=== PATIENT | female | born 1945 | race Hispanic/Latino ===

== ENCOUNTER 2017-05-15 06:41 | Inpatient (IN) | payer MEDICARE, MEDICAID ==
[2017-05-15 06:42] VITALS: BMI 36.6
--- NOTE | 2017-05-15 07:08 | C.PDOC ---
History Of Present Illness 71 year old female brought to ED via ALS from [facility] for altered mental status which was discovered this morning prior to arrival. As per EMS, pt was last noted to be normal last night. As per nursing record, pt had elevated temperature of 104. Limited history obtained from patient at this time due to clinical condition. Time Seen by Provider: 05/15/17 06:56 Chief Complaint (Nursing): Altered Mental Status History Per: EMS History/Exam Limitations: None Onset/Duration Of Symptoms: Unknown Current Symptoms Are (Timing): Still Present Additional History Per: EMS Associated Symptoms: Disoriented Past Medical History Reviewed: Historical Data, Nursing Documentation, Vital Signs Vital Signs: Last Vital Signs Temp 104 F H 05/15/17 09:07 Pulse 94 H 05/15/17 09:07 Resp 24 05/15/17 09:07 BP 95/26 L 05/15/17 09:07 Pulse Ox 99 05/15/17 09:07 - Medical History PMH: Anemia, Anxiety, Arthritis, Asthma, Depression, Diabetes (IDDM), Diverticulitis (s/p Merrill procedure), Fractures, HTN, Hypercholesterolemia, Hyperlipidemia, TIA Denies: CHF, COPD, HIV, Hypothyroidism, Chronic Kidney Disease, Rheumatoid Arthritis Surgical History: Back Surgery, Cholecystectomy - [facility] BONE MARROW OPS NEC (08/21/14) COMMUNICATIVE/COGNITIVE INTEGRATION SKILLS TREATMENT (05/08/16) DEBRIDEMENT OF NAIL, NAIL BED OR NAIL FOLD (12/12/12) DRAINAGE OF LOWER BACK, OPEN APPROACH (06/28/16) EXCISE BONE FOR GFT NEC (08/21/14) EXCISION OF BACK SKIN, EXTERNAL APPROACH (06/28/16) EXCISION OF BACK SUBCU/FASCIA, OPEN APPROACH (06/28/16) EXERCISE TRMT MUSCULOSK LOW BACK/LE W ASSIST EQUIP (05/08/16) FUSION/REFUS OF 2-3 VERTEBRAE (08/21/14) GAIT TRAINING/AMBULAT TREATMENT USING ASSIST EQUIPMENT (05/08/16) GROOMING/PERSONAL HYGIENE TREATMENT USING ASSIST EQUIPMENT (05/08/16) INSERTION OF INFUSION DEV INTO SUP VENA CAVA, PERC APPROACH (06/28/16) LUMBAR & LUMBOSACRAL FUSION OF POSTERIOR COL/TECHNIQUE (08/21/14) OCCUPATIONAL THERAPY (10/31/14) OTHER LOCAL DESTRUC SKIN (12/12/12) PACKED CELL TRANSFUSION (08/21/14) PHYSICAL THERAPY NEC (10/31/14) REPOSITION LEFT RADIUS, EXTERNAL APPROACH (05/07/17) TRANSFUSE NONAUT RED BLOOD CELLS IN PERIPH VEIN, PERC (06/28/16) Family History: States: Unknown Family Hx - Social History Hx Alcohol Use: No Hx Substance Use: No Review Of Systems Review Of Systems: ROS cannot be obtained secondary to pt's inabilty to answer questions. Physical Exam - Physical Exam Appears: No Acute Distress, Agitated, Confused Skin: Warm, Diaphoretic Head: Atraumatic, Normacephalic Eye(s): bilateral: Abnormal Pupil (pupils dilated) Nose: No Epistaxis Oral Mucosa: Moist Lips: No Swelling Neck: Supple Cardiovascular: Rhythm Regular, No Edema, No Murmur Respiratory: No Decreased Breath Sounds, No Rales, No Rhonchi, No Stridor, No Wheezing Gastrointestinal/Abdominal: Soft, No Distention, No Guarding Extremity: No Pedal Edema, No Deformity Extremity: Bilateral: Atraumatic Pulses: Right Radial: Normal Neurological/Psych: No Oriented x3 (disoriented), Other (no focal deficits) ED Course And Treatment - Laboratory Results Result Diagrams: 05/15/17 07:13 05/15/17 08:29 O2 Sat by Pulse Oximetry: 93 Critical Care Time - Critical Care Note Total Time (in mins): 60 Documented critical care: time excludes all time spent performing seperately billable procedures. Medical Decision Making Medical Decision Making: Initial EKG showed vtach. Pt was placed on Amiodarone drip by overnight physician. Upon my evaluation, pt appears to be in sinus rhythm on the monitor. 8am disc w both director insurance and neurologist Dr Tinsley. 945am pt now resting quietly without agitation or tremor. pupils less dilated. serotonin syndrome high on differential- rx w benzo and cyproheptadine also covering for infection with broad spec abx Disposition - Disposition Disposition: HOSPITALIZED Disposition Time: 09:49 Condition: CRITICAL Forms: [facility] (Albanian) - Clinical Impression Clinical Impression: Hyperthermia, Altered mental status - Scribe Statement The provider has reviewed the documentation as recorded by the Scribe Lindsay Coley All medical record entries made by the Scribe were at my direction and personally dictated by me. I have reviewed the chart and agree that the record accurately reflects my personal performance of the history, physical exam, medical decision making, and the department course for this patient. I have also personally directed, reviewed, and agree with the discharge instructions and disposition.
[2017-05-15] MEDS ORDERED: Sodium Chloride 0.9% 1,000 ML IV ONE ×2 (07:12→07:13)
[2017-05-15 07:16] LABS: BASO # 0.1 K/uL (0.0-0.2); BASO % 0.5 % (0.0-2.0); EOS # 0.1 K/uL (0.0-0.7); EOS % 0.7 % (0.0-4.0); HEMOGLOBIN 13.6 g/dL (11.0-16.0); LYMPH # 4.5 K/uL (1.0-4.3); LYMPH % 28.4 % (20.0-40.0); MEAN CELL VOLUME 81.6 fL (81.0-99.0); MEAN CORPUSCULAR HEMOGLOBIN 26.7 pg (27.0-31.0); MEAN CORPUSCULAR HGB CONC 32.8 g/dL (33.0-37.0); MEAN PLATELET VOLUME 8.4 fL (7.2-11.7); MONO # 0.4 K/uL (0.0-0.8); MONO % 2.7 % (0.0-10.0); NEUT # 10.7 K/uL (1.8-7.0); NEUT % 67.7 % (50.0-75.0); NRBC % 0.2 % (0.0-2.0); RBC 5.07 Mil/uL (3.80-5.20); RED CELL DISTRIBUTION WIDTH 16.3 % (11.5-14.5); WHITE BLOOD COUNT 15.8 K/uL (4.8-10.8)
[2017-05-15 07:18] LABS: VENOUS BLOOD GAS BASE EXCESS -6.9 mmol/L (0.0-2.0); VENOUS BLOOD GAS PCO2 36 mmHg (40-60); VENOUS BLOOD GAS PO2 21 mm/Hg (30-55); VENOUS BLOOD PH 7.32 (7.32-7.43)
[2017-05-15 07:23] LABS: INR 1.1; PROTHROMBIN TIME 12.7 SECONDS (9.7-12.2)
[2017-05-15] MEDS ORDERED: Cyproheptadine 2 mg/5 ml Syrup (480mL) PO STA (07:34)
[2017-05-15 07:40] LABS: SQUAMOUS EPITHIAL 1 /hpf (0-5); URINE AMORPHOUS SEDIMENT RARE /ul (<OCC); URINE BILIRUBIN NEGATIVE (NEGATIVE); URINE BLOOD 1+ (NEGATIVE); URINE CLARITY Clear (Clear); URINE COLOR Yellow (YELLOW); URINE GLUCOSE (UA) NORMAL (Normal); URINE HYALINE CAST 0-2 /lpf (0-2); URINE LEUKOCYTE ESTERASE NEG Leu/uL (Negative); URINE NITRATE NEGATIVE (NEGATIVE); URINE PROTEIN 1+ mg/dL (NEGATIVE); URINE UROBILINOGEN NORMAL mg/dL (0.2-1.0)
[2017-05-15] MEDS ORDERED: Vancomycin 500 mg Inj IVPB STA (07:56)
[2017-05-15] MEDS ORDERED: Piperacill/Tazo 4.5gm in Dex 4.5 GM/100 ML BAG IVPB STA (07:57)
[2017-05-15] MEDS ORDERED: Vancomycin 1.5 GM in Sodium Chloride 0.9% 500 ML IVPB STA (08:16)
[2017-05-15 08:44] LABS: ALB/GLOB RATIO 1.1 (1.0-2.1); ALBUMIN 3.6 g/dL (3.5-5.0); CALCIUM 7.6 mg/dl (8.6-10.4)
--- NOTE | 2017-05-15 08:59 | CT ---
PROCEDURE: CT HEAD WITHOUT CONTRAST. HISTORY: ams COMPARISON: None available. TECHNIQUE: Axial computed tomography images were obtained through the head/brain without intravenous contrast. Radiation dose: Total exam DLP = 825.04 mGy-cm. This CT exam was performed using one or more of the following dose reduction techniques: Automated exposure control, adjustment of the mA and/or kV according to patient size, and/or use of iterative reconstruction technique. FINDINGS: HEMORRHAGE: No intracranial hemorrhage. BRAIN: No mass effect or edema. Moderate atrophy is noted. There are foci of hypodensity seen adjacent to mid and posterior aspect of the lateral ventricles of uncertain etiology. The differential consideration includes chronic microvascular ischemic disease. The possibility of subacute ischemic changes is not totally excluded. VENTRICLES: Unremarkable. No hydrocephalus. CALVARIUM: Unremarkable. PARANASAL SINUSES: Unremarkable as visualized. No significant inflammatory changes. MASTOID AIR CELLS: Unremarkable as visualized. No inflammatory changes. OTHER FINDINGS: None. IMPRESSION: Baseline CT of the head. Moderate atrophy. Periventricular hypodensities noted more prominent at the mid and posterior aspect of the lateral ventricles may represent chronic microvascular ischemic disease. Other etiology including subacute ischemia is not totally excluded. No evidence of acute intracranial hemorrhage mass effect or midline shift.
[2017-05-15 09:00] LABS: CK-MB 1.65 ng/mL (0.0-3.38); TROPONIN I 0.521 ng/mL (0.00-0.120)
[2017-05-15 09:16] LABS: ABG ALLEN TEST POS; ARTERIAL BLOOD GAS HCO3 16.3 mmol/L (21-28); ARTERIAL BLOOD GAS HEMOGLOBIN 10.9 g/dL (11.7-17.4); ARTERIAL BLOOD GAS O2 SAT 98.2 % (95-98); ARTERIAL BLOOD GAS PCO2 32 mm/Hg (35-45); ARTERIAL BLOOD GAS PH 7.27 (7.35-7.45); ARTERIAL BLOOD GAS PO2 174 mm/Hg (80-100); ARTERIAL BLOOD GAS TCO2 15.7 mmol/L (22-28)
--- NOTE | 2017-05-15 14:26 | CP.PCM.CON ---
History of Present Illness - History of Present Illness History of Present Illness: 71yo F. PMHx Anemia, Anxiety, Arthritis, Asthma, Depression, Diabetes (IDDM), Diverticulitis (s/p Merrill procedure), Fractures, HTN, Hypercholesterolemia, Hyperlipidemia, TIA. Patient was recently hospitalized for wrist fracture and then discharge to rehab. Presents with AMS, rigidity, tremors and hyperthermia. Suspected to have serotonin syndrome by ER. Review of Systems - Review of Systems Systems not reviewed;Unavailable: Altered Mental Status Past Patient History - Infectious Disease Hx of Infectious Diseases: None - Past Medical History & Family History Past Medical History?: Yes - Past Social History Smoking Status: Never Smoked - CARDIAC Hx Congestive Heart Failure: No Hx Hypercholesterolemia: Yes Hx Hypertension: Yes - PULMONARY Hx Asthma: Yes Hx Chronic Obstructive Pulmonary Disease (COPD): No - NEUROLOGICAL Hx Transient Ischemic Attacks (TIA): Yes - HEENT Other/Comment: GLASSES - NEARSIGHTEDNESS. - RENAL Hx Chronic Kidney Disease: No - ENDOCRINE/METABOLIC Hx Hypothyroidism: No - HEMATOLOGICAL/ONCOLOGICAL Hx Anemia: Yes Hx Human Immunodeficiency Virus (HIV): No - INTEGUMENTARY Hx Cellulitis: Yes (BLE) Other/Comment: Sacral decubiti, RIGHT HEEL (DTI) - MUSCULOSKELETAL/RHEUMATOLOGICAL Hx Arthritis: Yes Hx Fractures: Yes Hx Rheumatoid Arthritis: No - GASTROINTESTINAL Hx Diverticulitis: Yes (s/p Merrill procedure) - GENITOURINARY/GYNECOLOGICAL Hx Genitourinary Disorders: No Other/Comment: bladder fistula - PSYCHIATRIC Hx Anxiety: Yes Hx Depression: Yes Hx Substance Use: No - SURGICAL HISTORY Hx Cholecystectomy: Yes - ANESTHESIA Hx Anesthesia: Yes Hx Anesthesia Reactions: No Hx Malignant Hyperthermia: No Meds Allergies/Adverse Reactions: Allergies Allergy/AdvReac Type Severity Reaction Status Date / Time iodine Allergy RASH Verified 05/15/17 07:10 Sulfa (Sulfonamide Allergy RASH Verified 05/15/17 07:10 Antibiotics) - Medications Medications: Current Medications Amiodarone HCl 900 mg/ (Dextrose) 500 mls @ 16.66 mls/hr IV .Q24H LUIS ALBERTO; 0.5 MG/ MIN PRN Reason: Protocol Stop: 05/16/17 09:52 Physical Exam - Head Exam Head Exam: ATRAUMATIC, NORMAL INSPECTION, NORMOCEPHALIC - Eye Exam Eye Exam: EOMI - ENT Exam ENT Exam: Mucous Membranes Moist - Respiratory Exam Respiratory Exam: Clear to Auscultation Bilateral, NORMAL BREATHING PATTERN - Cardiovascular Exam Cardiovascular Exam: REGULAR RHYTHM - GI/Abdominal Exam GI & Abdominal Exam: Normal Bowel Sounds, Soft. absent: Tenderness - Neurological Exam Neurological exam: Alert Results - Vital Signs Recent Vital Signs: Last Vital Signs Temp 100.6 F H 05/15/17 11:30 Pulse 76 05/15/17 12:42 Resp 17 05/15/17 12:42 BP 95/41 L 05/15/17 12:42 Pulse Ox 97 05/15/17 12:42 - Labs Result Diagrams: 05/15/17 07:13 05/15/17 08:29 Labs: Laboratory Results - last 24 hr 05/15/17 05/15/17 05/15/17 07:13 07:13 07:13 WBC 15.8 H RBC 5.07 Hgb 13.6 Hct 41.3 MCV 81.6 MCH 26.7 L MCHC 32.8 L RDW 16.3 H Plt Count 335 MPV 8.4 Neut % (Auto) 67.7 Lymph % (Auto) 28.4 Elk % (Auto) 2.7 Eos % (Auto) 0.7 Baso % (Auto) 0.5 Neut # 10.7 H Lymph # 4.5 H Elk # 0.4 Eos # 0.1 Baso # 0.1 PT 12.7 H INR 1.1 APTT 25 Puncture Site pCO2 pO2 21 L HCO3 ABG pH ABG Total CO2 ABG O2 Saturation ABG Base Excess ABG Hemoglobin ABG Carboxyhemoglobin POC ABG HHb (Measured) ABG Methemoglobin Jose Test VBG pH 7.32 VBG pCO2 36 L VBG HCO3 17.7 VBG Total CO2 19.6 L VBG O2 Sat (Calc) 33.1 L VBG Base Excess -6.9 L VBG Potassium 6.0 H A-a O2 Difference Respiratory Index Hgb O2 Saturation Sodium 134.0 Chloride 102.0 Glucose 158 H Lactate 2.1 Liter Flow FiO2 Potassium Carbon Dioxide Anion Gap BUN Creatinine Est GFR ( Amer) Est GFR (Non-Af Amer) Random Glucose Calcium Total Bilirubin AST ALT Alkaline Phosphatase Total Creatine Kinase CK-MB (Mass) Troponin I NT-Pro-B Natriuret Pep Total Protein Albumin Globulin Albumin/Globulin Ratio Triglycerides Cholesterol LDL Cholesterol Direct HDL Cholesterol TSH 3rd Generation Venous Blood Potassium 6.0 H Urine Color Urine Clarity Urine pH Ur Specific [place] Urine Protein Urine Glucose (UA) Urine Ketones Urine Blood Urine Nitrate Urine Bilirubin Urine Urobilinogen Ur Leukocyte Esterase Urine WBC (Auto) Urine RBC (Auto) Ur Squamous Epith Cells Amorphous Sediment Hyaline Casts 05/15/17 05/15/17 05/15/17 07:29 08:29 09:13 WBC RBC Hgb Hct MCV MCH MCHC RDW Plt Count MPV Neut % (Auto) Lymph % (Auto) [place] % (Auto) Eos % (Auto) Baso % (Auto) Neut # Lymph # [place] # Eos # Baso # PT INR APTT Puncture Site Rra pCO2 32 L pO2 174 H HCO3 16.3 L ABG pH 7.27 L ABG Total CO2 15.7 L ABG O2 Saturation 98.2 H ABG Base Excess -11.1 L ABG Hemoglobin 10.9 L ABG Carboxyhemoglobin 0.9 POC ABG HHb (Measured) 1.8 ABG Methemoglobin 1.1 Jose Test Pos VBG pH VBG pCO2 VBG HCO3 VBG Total CO2 VBG O2 Sat (Calc) VBG Base Excess VBG Potassium A-a O2 Difference 499.0 Respiratory Index 2.9 Hgb O2 Saturation 96.3 Sodium 133 Chloride 101 Glucose Lactate Liter Flow 12.0 FiO2 100.0 Potassium 5.6 H Carbon Dioxide 17 L Anion Gap 19 BUN 29 H Creatinine 1.6 H Est GFR ( Amer) 38 Est GFR (Non-Af Amer) 32 Random Glucose 164 H Calcium 7.6 L Total Bilirubin 1.3 AST 49 H D ALT 29 Alkaline Phosphatase 67 Total Creatine Kinase 208 H CK-MB (Mass) 1.65 Troponin I 0.5210 H* NT-Pro-B Natriuret Pep 1080 H Total Protein 7.1 Albumin 3.6 Globulin 3.5 Albumin/Globulin Ratio 1.1 Triglycerides 143 Cholesterol 123 LDL Cholesterol Direct 61 HDL Cholesterol 26 L TSH 3rd Generation 1.08 Venous Blood Potassium Urine Color Yellow Urine Clarity Clear Urine pH 5.0 Ur Specific [place] 1.019 Urine Protein 1+ H Urine Glucose (UA) Normal Urine Ketones 1+ H Urine Blood 1+ H Urine Nitrate Negative Urine Bilirubin Negative Urine Urobilinogen Normal Ur Leukocyte Esterase Neg Urine WBC (Auto) 1 Urine RBC (Auto) 2 Ur Squamous Epith Cells 1 Amorphous Sediment Rare H Hyaline Casts 0-2 Assessment & Plan (1) Altered mental status Assessment and Plan: 71yo F. PMHx Anemia, Anxiety, Arthritis, Asthma, Depression, Diabetes (IDDM), Diverticulitis (s/p Merrill procedure), Fractures, HTN, Hypercholesterolemia, Hyperlipidemia, TIA. p/w suspected to have serotonin syndrome by ER. Neuro: now sedate after being given Ativan. Serotonin Syndrome, supportive care. Patient was given cyproheptadine in ED. Pulm: breathing spontaneously on nasal canula oxygen. CV: hemodynamically stable. Wide complex tachycardia, started on amiodarone in ED, will recheck BMP. Hem: no acute issues Renal: urine output wnl, will monitor. Hyperkalemia, will recheck BMP. Endo: DM type 2, SISS for coverage GI: NPO while sedate, will start diet once patient wakes up. ID: no acute issues DVT proph - lovenox GI proph - not currently indicated langston for strict I/O's during acute illness Code status - full code Critical Care Time spent 35 minutes The documented time is cumulative and includes review of patient data/exams/labs /chart review and examination of the patient on rounds and throughout the day; time is exclusive of any procedures or teaching time. Status: Acute
[2017-05-15 16:23] LABS: CALCIUM 6.8 mg/dl (8.6-10.4)
[2017-05-15 16:41] LABS: TROPONIN I 1.02 ng/mL (0.00-0.120)
--- NOTE | 2017-05-15 17:17 | RAD ---
HISTORY: bed 4 COMPARISON: No prior. FINDINGS: LUNGS: No active pulmonary disease. PLEURA: No significant pleural effusion identified, no pneumothorax apparent. CARDIOVASCULAR: Normal. OSSEOUS STRUCTURES: No significant abnormalities. VISUALIZED UPPER ABDOMEN: Normal. OTHER FINDINGS: None. IMPRESSION: No active disease.
[2017-05-15] MEDS ORDERED: Heparin25000 units/250ml 1/2NS 25,000 UNITS/250 ML BAG IV PRN (19:24)
--- NOTE | 2017-05-15 21:08 | RAD ---
HISTORY: cp COMPARISON: Comparison is made to the previous study done on the same day FINDINGS: LUNGS: No significant interval change in the lungs. PLEURA: No significant pleural effusion identified, no pneumothorax apparent. CARDIOVASCULAR: Normal. OSSEOUS STRUCTURES: No significant abnormalities. VISUALIZED UPPER ABDOMEN: NG tube seen extending to the stomach. OTHER FINDINGS: None. IMPRESSION: Appropriate position of the NG tube. Otherwise no interval change.
--- NOTE | 2017-05-15 22:28 | PCM.PROC ---
Procedures Attestation:: I certify that I have explained the specified Operation(s) or Procedure(s), risks, benefits and reasonable alternatives to the Patient and/or other person responsible. The opportunity was given to ask questions and all questions answered - Central Line Placement Right Internal Jugular Triple Lumen Catheter Aseptic technique was employed throughout the procedure: Full sterile barriers ( mask, hair cover, sterile gown, sterile gloves), Chloraprep Antiseptic: 30 second prep for IJ or SC sites CVP Time Out Performed: Yes Pt. Placed on Pulse Ox Monitor: Yes Central Line Prep: Chlorhexidine-Alcohol Combination Local Anesthesia Used: Lidocaine 1% Amount of Anesthesia Used (mls): 5 Ultrasound Used for Placement: Yes Central Line Lumen Inserted: triple Central Line Length: 20 cm Post Procedure: Sutured in Place, Good Blood Return, All Ports Aspirated, Flushed, Capped, Sterile Dressing Applied Secured by: Suture Post procedure dressing: Gauze, Clear vapor permeable, Chlorhexidine disc ( Biopatch) Post Procedure X-Ray: Yes Patient Tolerated Procedure: Well, No Complications Immediate Complications: None
[2017-05-15 22:56] LABS: MAGNESIUM 1.6 mg/dL (1.6-2.3)
[2017-05-15 23:10] LABS: TROPONIN I 0.514 ng/mL (0.00-0.120)
[2017-05-16 05:08] LABS: BASO % 0.5 % (0.0-2.0); EOS % 0.3 % (0.0-4.0); LYMPH % 14.6 % (20.0-40.0); MEAN CELL VOLUME 80.7 fL (81.0-99.0); MEAN CORPUSCULAR HEMOGLOBIN 26.7 pg (27.0-31.0); MEAN CORPUSCULAR HGB CONC 33.1 g/dL (33.0-37.0); MEAN PLATELET VOLUME 8.4 fL (7.2-11.7); MONO # 0.6 K/uL (0.0-0.8); MONO % 9.8 % (0.0-10.0); NEUT # 4.9 K/uL (1.8-7.0); NEUT % 74.8 % (50.0-75.0); RBC 3.46 Mil/uL (3.80-5.20); RED CELL DISTRIBUTION WIDTH 16.5 % (11.5-14.5); WHITE BLOOD COUNT 6.5 K/uL (4.8-10.8)
[2017-05-16 05:11] LABS: HEMOGLOBIN 9.2 g/dL (11.0-16.0)
[2017-05-16 05:16] LABS: ALBUMIN 2.9 g/dL (3.5-5.0); CALCIUM 6.9 mg/dl (8.6-10.4); MAGNESIUM 1.5 mg/dL (1.6-2.3)
[2017-05-16 05:53] LABS: TROPONIN I 0.358 ng/mL (0.00-0.120)
--- NOTE | 2017-05-16 08:20 | RAD ---
HISTORY: post tlc insertion COMPARISON: Comparison is made with prior study dated 05/15/2017 FINDINGS: LUNGS: No significant interval change in the lungs noted since the previous exam. Will PLEURA: No significant pleural effusion identified, no pneumothorax apparent. CARDIOVASCULAR: The cardiac silhouette is prominent in size. OSSEOUS STRUCTURES: No significant abnormalities. VISUALIZED UPPER ABDOMEN: NG tube seen extending to the stomach PE OTHER FINDINGS: Right jugular central line is seen in place. IMPRESSION: No significant interval change. Appropriate position of the support devices.
[2017-05-16] MEDS: Magnesium Sulfate 1 gm in D5W 1 GM/100 ML BAG IVPB SCH ×2 (10:28→11:20)
[2017-05-16] MEDS: (Novolin R) Insulin Human Regular 100 units/ml vial SC SCH ×3 (12:24→22:13)
--- NOTE | 2017-05-16 14:45 | CP.PCM.CON ---
History of Present Illness - History of Present Illness History of Present Illness: I was asked to evaluate patient for wide complex tachycardia. Patient is a 71 year old long-term resident who presented with altered mental status. The patient was thought to have a serotonin sydrome. In the ER whe ws found tohave a wide compelx tachycardia. She was started on amiodarone. Currently she is in sinus rhythm. EKG reveals sinus rhythm with a RBBB. She has elevated troponin. She denies current chest pain. Review of Systems - Constitutional Constitutional: absent: As Per HPI, Anorexia, Chills, Daytime Sleepiness, Excessive Sweating, Fatigue, Fever, Frequent Falls, Headache, Increased Appetite , Lethargy, Malaise, Night Sweats, Snoring, Sleep Apnea, Weight Gain, Weight Loss, Weakness, Other - EENT Eyes: absent: As Per HPI, Blind Spots, Blurred Vision, Change in Vision, Decreased Night Vision, Diplopia, Discharge, Dry Eye, Exophthalmos, Floaters, Irritation, Itchy Eyes, Loss of Peripheral Vision, Pain, Photophobia, Requires Corrective Lenses, Sees Flashes, Spots in Vision, Tunnel Vision, Other Visual Disturbances, Loss of Vision, Other Ears: absent: As Per HPI, Decreased Hearing, Ear Discharge, Ear Pain, Tinnitus, Abnormal Hearing, Disequilibrium, Dizziness, Other Nose/Mouth/Throat: absent: As Per HPI, Epistaxis, Nasal Congestion, Nasal Discharge, Nasal Obstruction, Nasal Trauma, Nose Pain, Post Nasal Drip, Sinus Pain, Sinus Pressure, Bleeding Gums, Change in Voice, Dental Pain, Dry Mouth, Dysphagia, Halitosis, Hoarsness, Lip Swelling, Mouth Lesions, Mouth Pain, Odynophagia, Sore Throat, Throat Swelling, Tongue Swelling, Facial Pain, Neck Pain, Neck Mass, Other - Cardiovascular Cardiovascular: absent: As Per HPI, Acrocyanosis, Chest Pain, Chest Pain at Rest , Chest Pain with Activity, Claudication, Diaphoresis, Dyspnea, Dyspnea on Exertion, Edema, Irregular Heart Rhythm, Pain Radiating to Arm/Neck/Jaw, Leg Edema, Leg Ulcers, Lightheadedness, Orthopnea, Palpitations, Paroxysmal Nocturnal Dyspnea, Pedal Edema, Radiating Pain, Rapid Heart Rate, Slow Heart Rate, Syncope, Other - Respiratory Respiratory: absent: As Per HPI, Cough, Dyspnea, Hemoptysis, Dyspnea on Exertion , Wheezing, Snoring, Stridor, Pain on Inspiration, Chest Congestion, Excessive Mucous Production, Change in Mucous Color, Pain with Coughing, Other - Gastrointestinal Gastrointestinal: absent: As Per HPI, Abdominal Pain, Belching, Bloating, Change in Bowel Habits, Change in Stool Character, Coffee Ground Emesis, Constipation, Cramping, Diarrhea, Dyspepsia, Dysphagia, Early Satiety, Excessive Flatus, Fecal Incontinence, Heartburn, Hematemesis, Hematochezia, Loose Stools, Melena, Nausea, Odynophagia, Temesmus, Vomiting, Other - Musculoskeletal Musculoskeletal: absent: As Per HPI, Abnormal Gait, Arthralgias, Atrophy, Back Pain, Deformity, Joint Swelling, Limited Range of Motion, Loss of Height, Muscle Cramps, Muscle Weakness, Myalgias, Neck Pain, Numbness, Radiating Pain into Limb, Stiffness, Tingling, Other - Integumentary Integumentary: absent: As Per HPI, Acne, Alopecia, Bleeding Lesions, Change in Hair, Change in Nails, Change in Pigmentation, Changing Lesions, Dry Skin, Erythema, Furuncle, Hirsutism, Lesions, New Lesions, Non-Healing Lesions, Photosensitivity, Pruritus, Rash, Skin Pain, Skin Ulcer, Sores, Striae, Swelling , Unusual Bruising, Wounds, Jaundice, Other - Neurological Neurological: absent: As Per HPI, Abnormal Gait, Abnormal Hearing, Abnormal Movements, Abnormal Speech, Behavioral Changes, Burning Sensations, Confusion, Convulsions, Disequilibrium, Dizziness, Numbness, Focal Weakness, Frequent Falls , Headaches, Lack of Coordination, Loss of Vision, Memory Loss, Paresthesias, Radicular Pain, Restless Legs, Sensory Deficit, Syncope, Tingling, Tremor, Vertigo, Weakness, Other Visual Disturbances, Other - Psychiatric Psychiatric: absent: As Per HPI, Abnormal Sleep Pattern, Anhedonia, Anxiety, Auditory Hallucinations, Behavioral Changes, Change in Appetite, Change in Libido, Confusion, Depression, Difficulty Concentrating, Hallucinations, Homicidal Ideation, Hopelessness, Irritability, Memory Loss, Mood Swings, Panic Attacks, Paranoia, Suicidal Ideation, Visual Hallucinations, Tactile Hallucinations, Other - Endocrine Endocrine: absent: As Per HPI, Change in Body Appearance, Change in Libido, Cold Intolorance, Deepening of Voice, Excessive Sweating, Fatigue, Flushing, Heat Intolorance, Increase in Ring/Shoe/Hat Size, Palpitations, Polydipsia, Polyphagia, Polyuria, Other - Hematologic/Lymphatic Hematologic: absent: As Per HPI, Easy Bleeding, Easy Bruising, Lymphadenopathy, Other Past Patient History - Infectious Disease Hx of Infectious Diseases: None - Past Medical History & Family History Past Medical History?: Yes - Past Social History Smoking Status: Never Smoked - CARDIAC Hx Congestive Heart Failure: No Hx Hypercholesterolemia: Yes Hx Hypertension: Yes - PULMONARY Hx Asthma: Yes Hx Chronic Obstructive Pulmonary Disease (COPD): No - NEUROLOGICAL Hx Transient Ischemic Attacks (TIA): Yes - HEENT Other/Comment: GLASSES - NEARSIGHTEDNESS. - RENAL Hx Chronic Kidney Disease: No - ENDOCRINE/METABOLIC Hx Diabetes Mellitus Type 2: Yes Hx Hypothyroidism: No - HEMATOLOGICAL/ONCOLOGICAL Hx Anemia: Yes Hx Blood Transfusions: Yes Hx Human Immunodeficiency Virus (HIV): No - INTEGUMENTARY Hx Cellulitis: Yes (BLE) Other/Comment: Sacral decubiti, RIGHT HEEL (DTI) - MUSCULOSKELETAL/RHEUMATOLOGICAL Hx Arthritis: Yes Hx Falls: Yes Hx Fractures: Yes Hx Rheumatoid Arthritis: No - GASTROINTESTINAL Hx Colostomy: Yes Hx Diverticulitis: Yes (s/p Merrill procedure) - GENITOURINARY/GYNECOLOGICAL Hx Genitourinary Disorders: No Other/Comment: bladder fistula - PSYCHIATRIC Hx Anxiety: Yes Hx Depression: Yes Hx Substance Use: No - SURGICAL HISTORY Hx Cholecystectomy: Yes - ANESTHESIA Hx Anesthesia: Yes Hx Anesthesia Reactions: No Hx Malignant Hyperthermia: No Meds Allergies/Adverse Reactions: Allergies Allergy/AdvReac Type Severity Reaction Status Date / Time iodine Allergy RASH Verified 05/15/17 07:10 Sulfa (Sulfonamide Allergy RASH Verified 05/15/17 07:10 Antibiotics) - Medications Medications: Current Medications Aspirin (Aspirin Chewable) 81 mg PO DAILY [facility] Last Admin: 05/16/17 10:29 Dose: 81 mg Sodium Bicarbonate 75 meq/ (Sodium Chloride) 1,075 mls @ 75 mls/hr IV .[id number] [facility] Last Admin: 05/16/17 10:29 Dose: 75 mls/hr Insulin Human Regular (Novolin R) 0 unit SC ACHS [facility] PRN Reason: Protocol Last Admin: 05/16/17 12:24 Dose: Not Given Physical Exam - Constitutional Appears: Non-toxic - Head Exam Head Exam: NORMAL INSPECTION - Eye Exam Eye Exam: Normal appearance - ENT Exam ENT Exam: Mucous Membranes Moist - Neck Exam Neck exam: Positive for: Normal Inspection - Respiratory Exam Respiratory Exam: NORMAL BREATHING PATTERN - Cardiovascular Exam Cardiovascular Exam: REGULAR RHYTHM - GI/Abdominal Exam GI & Abdominal Exam: Normal Bowel Sounds - Rectal Exam Rectal Exam: Deferred - Extremities Exam Extremities exam: Negative for: pedal edema - Back Exam Back exam: NORMAL INSPECTION - Neurological Exam Neurological exam: Alert, Oriented x3 - Psychiatric Exam Psychiatric exam: Normal Affect - Skin Skin Exam: Normal Color Results - Vital Signs Recent Vital Signs: Last Vital Signs Temp 98.6 F 05/16/17 08:00 Pulse 74 05/16/17 08:50 Resp 12 05/16/17 08:50 BP 145/43 L 05/16/17 08:50 Pulse Ox 100 05/16/17 08:50 - Labs Result Diagrams: 05/16/17 04:57 05/16/17 04:57 Labs: Laboratory Results - last 24 hr 05/15/17 05/15/17 05/15/17 16:04 17:17 22:32 WBC RBC Hgb Hct MCV MCH MCHC RDW Plt Count MPV Neut % (Auto) Lymph % (Auto) [place] % (Auto) Eos % (Auto) Baso % (Auto) Neut # Lymph # [place] # Eos # Baso # Differential Comment APTT Sodium 129 L Potassium 4.0 Chloride 101 Carbon Dioxide 18 L Anion Gap 14 BUN 35 H Creatinine 2.0 H Est GFR ( Amer) 30 Est GFR (Non-Af Amer) 25 POC Glucose (mg/dL) Random Glucose 172 H Calcium 6.8 L Phosphorus 4.3 Magnesium 1.6 1.6 Total Bilirubin AST ALT Alkaline Phosphatase Troponin I 1.0200 H* 0.5140 H* Total Protein Albumin Globulin Albumin/Globulin Ratio Procalcitonin TSH 3rd Generation 05/16/17 05/16/17 05/16/17 04:57 04:57 04:57 WBC 6.5 D RBC 3.46 L Hgb 9.2 L D Hct 27.9 L MCV 80.7 L MCH 26.7 L MCHC 33.1 RDW 16.5 H Plt Count 103 L D MPV 8.4 Neut % (Auto) 74.8 Lymph % (Auto) 14.6 L [place] % (Auto) 9.8 Eos % (Auto) 0.3 Baso % (Auto) 0.5 Neut # 4.9 Lymph # 1.0 [place] # 0.6 Eos # 0.0 Baso # 0.0 Differential Comment APTT 59 H D Sodium 133 Potassium 3.2 L Chloride 104 Carbon Dioxide 20 L Anion Gap 13 BUN 36 H Creatinine 1.8 H Est GFR ( Amer) 34 Est GFR (Non-Af Amer) 28 POC Glucose (mg/dL) Random Glucose 82 Calcium 6.9 L Phosphorus 3.8 Magnesium 1.5 L Total Bilirubin 0.8 AST 75 H D ALT 53 H D Alkaline Phosphatase 54 Troponin I 0.3580 H* Total Protein 5.7 L Albumin 2.9 L Globulin 2.9 Albumin/Globulin Ratio 1.0 Procalcitonin TSH 3rd Generation 0.46 05/16/17 05/16/17 10:52 12:22 WBC RBC Hgb Hct MCV MCH MCHC RDW Plt Count MPV Neut % (Auto) Lymph % (Auto) [place] % (Auto) Eos % (Auto) Baso % (Auto) Neut # Lymph # [place] # Eos # Baso # Differential Comment APTT Sodium Potassium Chloride Carbon Dioxide Anion Gap BUN Creatinine Est GFR ( Amer) Est GFR (Non-Af Amer) POC Glucose (mg/dL) 118 H Random Glucose Calcium Phosphorus Magnesium Total Bilirubin AST ALT Alkaline Phosphatase Troponin I Total Protein Albumin Globulin Albumin/Globulin Ratio Procalcitonin 63.23 H TSH 3rd Generation - EKG Data EKG Interpreted by: Myself EKG shows normal: Sinus rhythm Assessment & Plan (1) NSTEMI (non-ST elevated myocardial infarction) Assessment and Plan: eh zapata has a substare for CAD and underlying CAD. recommend lovenox therapy. will have to monitor creatinine. platelet count. echocardiogram to evaluate LV function. Status: Acute (2) Hypertension Assessment and Plan: blood pressure control Status: Chronic
--- NOTE | 2017-05-16 15:41 | CP.CCUPN ---
CCU Subjective - Physician Review Events Since Last Encounter (Free Text): 05/16/17 15:38 patient seen and examined in the intensiv Care unit. Previous events noted. Remains lethargic Admitted with change in mental status and wide complex tachycardia with presumed diagnosis of serotonin syndrome Patient found to have elevated pro calcitonin level afebrile Stage IV decubiti CCU Objective - Vital Signs / Intake & Output Intake and Output (Last 8hrs): Intake & Output 05/16/17 05/16/17 05/16/17 06:59 14:59 22:59 Intake Total 613.4 1032.0 75 Output Total 430 435 40 Balance 183.4 597.0 35 Weight 179 lb 12.8 oz Intake: Intake, IV Amount 613.4 1032.0 75 Right Antecubital 121.5 Right Distal Port 300 Internal Jugular Right Medial Port 375 600 75 Internal Jugular Right Proximal Port 100.2 132.0 Internal Jugular Right Upper arm 16.7 Output: Urine 380 435 40 Urethral (Lopez) 380 435 40 Stool 50 - Physical Exam Head: Positive for: Atraumatic, Normocephalic Conjunctiva: Positive for: Normal Mouth: Positive for: Moist Mucous Membranes Neck: Positive for: Trachea Midline Respiratory/Chest: Positive for: Clear to Auscultation Cardiovascular: Positive for: Regular Rate and Rhythm Abdomen: Positive for: Normal Bowel Sounds Upper Extremity: Positive for: Normal Inspection Lower Extremity: Positive for: Normal Inspection Skin: Positive for: Warm Psychiatric: Positive for: Lethargic - Medications Active Medications: Active Medications Generic Name Dose Route Start Last Admin Trade Name Freq PRN Reason Stop Dose Admin Aspirin 81 mg 05/16/17 10:00 05/16/17 10:29 Aspirin Chewable PO 81 mg DAILY LUIS ALBERTO Administration Sodium Bicarbonate 75 meq/ 1,075 mls @ 75 mls/hr 05/15/17 17:45 05/16/17 10: 29 Sodium Chloride IV 75 mls/hr .[id number] LUIS ALBERTO Administration Insulin Human Regular 0 unit 05/16/17 11:30 05/16/17 12:24 Novolin R SC Not Given ACHS LUIS ALBERTO Protocol - Patient Studies Lab Studies: Microbiology Studies 05/15/17 07:20 Blood Culture - Preliminary Blood-Venous NO GROWTH AFTER 24 HOURS 05/15/17 06:50 Blood Culture - Preliminary Blood-Venous NO GROWTH AFTER 24 HOURS 05/15/17 06:52 Urine Culture - Final Urine No Growth (<1,000 CFU/ML) Lab Studies 05/16/17 05/16/17 05/16/17 Range/Units 12:22 10:52 04:57 WBC (4.8-10.8) K/uL RBC (3.80-5.20) Mil/uL Hgb (11.0-16.0) g/dL Hct (34.0-47.0) % MCV (81.0-99.0) fL MCH (27.0-31.0) pg MCHC (33.0-37.0) g/dL RDW (11.5-14.5) % Plt Count (130-400) K/uL MPV (7.2-11.7) fL Neut % (Auto) (50.0-75.0) % Lymph % (Auto) (20.0-40.0) % [place] % (Auto) (0.0-10.0) % Eos % (Auto) (0.0-4.0) % Baso % (Auto) (0.0-2.0) % Neut # (1.8-7.0) K/uL Lymph # (1.0-4.3) K/uL [place] # (0.0-0.8) K/uL Eos # (0.0-0.7) K/uL Baso # (0.0-0.2) K/uL Differential Comment APTT (21-34) SECONDS Sodium 133 (132-148) mmol/L Potassium 3.2 L (3.6-5.2) mmol/L Chloride 104 (98-107) mmol/L Carbon Dioxide 20 L (22-30) mmol/L Anion Gap 13 (10-20) BUN 36 H (7-17) mg/dL Creatinine 1.8 H (0.7-1.2) mg/dL Est GFR ( Amer) 34 Est GFR (Non-Af Amer) 28 POC Glucose (mg/dL) 118 H (65-110) mg/dL Random Glucose 82 (65-105) mg/dL Calcium 6.9 L (8.6-10.4) mg/dl Phosphorus 3.8 (2.5-4.5) mg/dL Magnesium 1.5 L (1.6-2.3) mg/dL Total Bilirubin 0.8 (0.2-1.3) mg/dL AST 75 H D (14-36) U/L ALT 53 H D (9-52) U/L Alkaline Phosphatase 54 (38-126) U/L Troponin I 0.3580 H* (0.00-0.120) ng/mL Total Protein 5.7 L (6.3-8.3) g/dL Albumin 2.9 L (3.5-5.0) g/dL Globulin 2.9 (2.2-3.9) gm/dL Albumin/Globulin Ratio 1.0 (1.0-2.1) Procalcitonin 63.23 H (0.19-0.49) NG/ML TSH 3rd Generation 0.46 (0.46-4.68) mIU/L 05/16/17 05/16/17 05/15/17 Range/Units 04:57 04:57 22:32 WBC 6.5 D (4.8-10.8) K/uL RBC 3.46 L (3.80-5.20) Mil/uL Hgb 9.2 L D (11.0-16.0) g/dL Hct 27.9 L (34.0-47.0) % MCV 80.7 L (81.0-99.0) fL MCH 26.7 L (27.0-31.0) pg MCHC 33.1 (33.0-37.0) g/dL RDW 16.5 H (11.5-14.5) % Plt Count 103 L D (130-400) K/uL MPV 8.4 (7.2-11.7) fL Neut % (Auto) 74.8 (50.0-75.0) % Lymph % (Auto) 14.6 L (20.0-40.0) % [place] % (Auto) 9.8 (0.0-10.0) % Eos % (Auto) 0.3 (0.0-4.0) % Baso % (Auto) 0.5 (0.0-2.0) % Neut # 4.9 (1.8-7.0) K/uL Lymph # 1.0 (1.0-4.3) K/uL [place] # 0.6 (0.0-0.8) K/uL Eos # 0.0 (0.0-0.7) K/uL Baso # 0.0 (0.0-0.2) K/uL Differential Comment APTT 59 H D (21-34) SECONDS Sodium (132-148) mmol/L Potassium (3.6-5.2) mmol/L Chloride (98-107) mmol/L Carbon Dioxide (22-30) mmol/L Anion Gap (10-20) BUN (7-17) mg/dL Creatinine (0.7-1.2) mg/dL Est GFR ( Amer) Est GFR (Non-Af Amer) POC Glucose (mg/dL) (65-110) mg/dL Random Glucose (65-105) mg/dL Calcium (8.6-10.4) mg/dl Phosphorus 4.3 (2.5-4.5) mg/dL Magnesium 1.6 (1.6-2.3) mg/dL Total Bilirubin (0.2-1.3) mg/dL AST (14-36) U/L ALT (9-52) U/L Alkaline Phosphatase (38-126) U/L Troponin I 0.5140 H* (0.00-0.120) ng/mL Total Protein (6.3-8.3) g/dL Albumin (3.5-5.0) g/dL Globulin (2.2-3.9) gm/dL Albumin/Globulin Ratio (1.0-2.1) Procalcitonin (0.19-0.49) NG/ML TSH 3rd Generation (0.46-4.68) mIU/L 05/15/17 05/15/17 Range/Units 17:17 16:04 WBC (4.8-10.8) K/uL RBC (3.80-5.20) Mil/uL Hgb (11.0-16.0) g/dL Hct (34.0-47.0) % MCV (81.0-99.0) fL MCH (27.0-31.0) pg MCHC (33.0-37.0) g/dL RDW (11.5-14.5) % Plt Count (130-400) K/uL MPV (7.2-11.7) fL Neut % (Auto) (50.0-75.0) % Lymph % (Auto) (20.0-40.0) % [place] % (Auto) (0.0-10.0) % Eos % (Auto) (0.0-4.0) % Baso % (Auto) (0.0-2.0) % Neut # (1.8-7.0) K/uL Lymph # (1.0-4.3) K/uL [place] # (0.0-0.8) K/uL Eos # (0.0-0.7) K/uL Baso # (0.0-0.2) K/uL Differential Comment APTT (21-34) SECONDS Sodium 129 L (132-148) mmol/L Potassium 4.0 (3.6-5.2) mmol/L Chloride 101 (98-107) mmol/L Carbon Dioxide 18 L (22-30) mmol/L Anion Gap 14 (10-20) BUN 35 H (7-17) mg/dL Creatinine 2.0 H (0.7-1.2) mg/dL Est GFR ( Amer) 30 Est GFR (Non-Af Amer) 25 POC Glucose (mg/dL) (65-110) mg/dL Random Glucose 172 H (65-105) mg/dL Calcium 6.8 L (8.6-10.4) mg/dl Phosphorus (2.5-4.5) mg/dL Magnesium 1.6 (1.6-2.3) mg/dL Total Bilirubin (0.2-1.3) mg/dL AST (14-36) U/L ALT (9-52) U/L Alkaline Phosphatase (38-126) U/L Troponin I 1.0200 H* (0.00-0.120) ng/mL Total Protein (6.3-8.3) g/dL Albumin (3.5-5.0) g/dL Globulin (2.2-3.9) gm/dL Albumin/Globulin Ratio (1.0-2.1) Procalcitonin (0.19-0.49) NG/ML TSH 3rd Generation (0.46-4.68) mIU/L Laboratory Results - last 24 hr 05/15/17 05/15/1718 16:04 17:17 22:32 WBC RBC Hgb Hct MCV MCH MCHC RDW Plt Count MPV Neut % (Auto) Lymph % (Auto) [place] % (Auto) Eos % (Auto) Baso % (Auto) Neut # Lymph # [place] # Eos # Baso # Differential Comment APTT Sodium 129 L Potassium 4.0 Chloride 101 Carbon Dioxide 18 L Anion Gap 14 BUN 35 H Creatinine 2.0 H Est GFR ( Amer) 30 Est GFR (Non-Af Amer) 25 POC Glucose (mg/dL) Random Glucose 172 H Calcium 6.8 L Phosphorus 4.3 Magnesium 1.6 1.6 Total Bilirubin AST ALT Alkaline Phosphatase Troponin I 1.0200 H* 0.5140 H* Total Protein Albumin Globulin Albumin/Globulin Ratio Procalcitonin TSH 3rd Generation 05/16/17 05/16/17 05/16/17 04:57 04:57 04:57 WBC 6.5 D RBC 3.46 L Hgb 9.2 L D Hct 27.9 L MCV 80.7 L MCH 26.7 L MCHC 33.1 RDW 16.5 H Plt Count 103 L D MPV 8.4 Neut % (Auto) 74.8 Lymph % (Auto) 14.6 L [place] % (Auto) 9.8 Eos % (Auto) 0.3 Baso % (Auto) 0.5 Neut # 4.9 Lymph # 1.0 [place] # 0.6 Eos # 0.0 Baso # 0.0 Differential Comment APTT 59 H D Sodium 133 Potassium 3.2 L Chloride 104 Carbon Dioxide 20 L Anion Gap 13 BUN 36 H Creatinine 1.8 H Est GFR ( Amer) 34 Est GFR (Non-Af Amer) 28 POC Glucose (mg/dL) Random Glucose 82 Calcium 6.9 L Phosphorus 3.8 Magnesium 1.5 L Total Bilirubin 0.8 AST 75 H D ALT 53 H D Alkaline Phosphatase 54 Troponin I 0.3580 H* Total Protein 5.7 L Albumin 2.9 L Globulin 2.9 Albumin/Globulin Ratio 1.0 Procalcitonin TSH 3rd Generation 0.46 05/16/17 05/16/17 10:52 12:22 WBC RBC Hgb Hct MCV MCH MCHC RDW Plt Count MPV Neut % (Auto) Lymph % (Auto) [place] % (Auto) Eos % (Auto) Baso % (Auto) Neut # Lymph # [place] # Eos # Baso # Differential Comment APTT Sodium Potassium Chloride Carbon Dioxide Anion Gap BUN Creatinine Est GFR ( Amer) Est GFR (Non-Af Amer) POC Glucose (mg/dL) 118 H Random Glucose Calcium Phosphorus Magnesium Total Bilirubin AST ALT Alkaline Phosphatase Troponin I Total Protein Albumin Globulin Albumin/Globulin Ratio Procalcitonin 63.23 H TSH 3rd Generation Fingerstick Blood Sugar Results: 118 Review of Systems - Review of Systems Systems not reviewed;Unavailable: Altered Mental Status Assessment/Plan (1) Altered mental status Current Visit: Yes Status: Acute Comment: 71-year-old female admitted with change in mental statusand possible 2 north and syndrome Elevated pro calcitonin level Stage IV decubiti Remains lethargic Consider lumbar puncture Infectious disease evaluation Antibiotics
--- NOTE | 2017-05-16 16:04 | CP.PCM.CON ---
History of Present Illness - History of Present Illness History of Present Illness: 71 year old female brought to ED via ALS from shelter for altered mental status As per EMS, pt was last noted to be normal last night. As per nursing record, pt had elevated temperature of 104. Found to have tachyarrythmias possible seratonin syndrome vs sepsis ID consulted for elevated Provcalcitonin level - Medical History PMH: Anemia, Anxiety, Arthritis, Asthma, Depression, Diabetes (IDDM), Diverticulitis (s/p Merrill procedure), Fractures left wrist right ankle , HTN , Hypercholesterolemia, Hyperlipidemia, TIA decubiti Denies: CHF, COPD, HIV, Hypothyroidism, Chronic Kidney Disease, Rheumatoid Arthritis Surgical History: Back Surgery ( lumbar fusion ) , Cholecystectomy - [facility] Procedures BONE MARROW OPS NEC (08/21/14) COMMUNICATIVE/COGNITIVE INTEGRATION SKILLS TREATMENT (05/08/16) DEBRIDEMENT OF NAIL, NAIL BED OR NAIL FOLD (12/12/12) DRAINAGE OF LOWER BACK, OPEN APPROACH (06/28/16) EXCISE BONE FOR GFT NEC (08/21/14) EXCISION OF BACK SKIN, EXTERNAL APPROACH (06/28/16) EXCISION OF BACK SUBCU/FASCIA, OPEN APPROACH (06/28/16) EXERCISE TRMT MUSCULOSK LOW BACK/LE W ASSIST EQUIP (05/08/16) FUSION/REFUS OF 2-3 VERTEBRAE (08/21/14) GAIT TRAINING/AMBULAT TREATMENT USING ASSIST EQUIPMENT (05/08/16) GROOMING/PERSONAL HYGIENE TREATMENT USING ASSIST EQUIPMENT (05/08/16) INSERTION OF INFUSION DEV INTO SUP VENA CAVA, PERC APPROACH (06/28/16) LUMBAR & LUMBOSACRAL FUSION OF POSTERIOR COL/TECHNIQUE (08/21/14) OCCUPATIONAL THERAPY (10/31/14) OTHER LOCAL DESTRUC SKIN (12/12/12) PACKED CELL TRANSFUSION (08/21/14) PHYSICAL THERAPY NEC (10/31/14) REPOSITION LEFT RADIUS, EXTERNAL APPROACH (05/07/17) TRANSFUSE NONAUT RED BLOOD CELLS IN PERIPH VEIN, PERC (06/28/16) Review of Systems - Review of Systems Systems not reviewed;Unavailable: Altered Mental Status All systems: reviewed and no additional remarkable complaints except - Constitutional Constitutional: As Per HPI - EENT Eyes: absent: As Per HPI, Blind Spots, Blurred Vision, Change in Vision, Decreased Night Vision, Diplopia, Discharge, Dry Eye, Exophthalmos, Floaters, Irritation, Itchy Eyes, Loss of Peripheral Vision, Pain, Photophobia, Requires Corrective Lenses, Sees Flashes, Spots in Vision, Tunnel Vision, Other Visual Disturbances, Loss of Vision, Other Ears: absent: As Per HPI, Decreased Hearing, Ear Discharge, Ear Pain, Tinnitus, Abnormal Hearing, Disequilibrium, Dizziness, Other Nose/Mouth/Throat: absent: As Per HPI, Epistaxis, Nasal Congestion, Nasal Discharge, Nasal Obstruction, Nasal Trauma, Nose Pain, Post Nasal Drip, Sinus Pain, Sinus Pressure, Bleeding Gums, Change in Voice, Dental Pain, Dry Mouth, Dysphagia, Halitosis, Hoarsness, Lip Swelling, Mouth Lesions, Mouth Pain, Odynophagia, Sore Throat, Throat Swelling, Tongue Swelling, Facial Pain, Neck Pain, Neck Mass, Other - Breasts Breasts: absent: As Per HPI, Change in Shape, Mass, Pain, Nipple Discharge, Nipple Inversion, Skin Changes, Swelling, Other - Cardiovascular Cardiovascular: As Per HPI - Respiratory Respiratory: absent: As Per HPI, Cough, Dyspnea, Hemoptysis, Dyspnea on Exertion , Wheezing, Snoring, Stridor, Pain on Inspiration, Chest Congestion, Excessive Mucous Production, Change in Mucous Color, Pain with Coughing, Other - Gastrointestinal Gastrointestinal: absent: As Per HPI, Abdominal Pain, Belching, Bloating, Change in Bowel Habits, Change in Stool Character, Coffee Ground Emesis, Constipation, Cramping, Diarrhea, Dyspepsia, Dysphagia, Early Satiety, Excessive Flatus, Fecal Incontinence, Heartburn, Hematemesis, Hematochezia, Loose Stools, Melena, Nausea, Odynophagia, Temesmus, Vomiting, Other - Genitourinary Genitourinary: absent: As Per HPI, Change in Urinary Stream, Difficulty Urinating, Dysuria, Flank Pain, Hematuria, Pyuria, Nocturia, Urinary Incontinence, Urinary Frequency, Urinary Hesitance, Urinary Urgency, Voiding Freq/Small Amts, Freq UTI, Hx Renal/Bladder Calculi, Hx /Renal Surgery, Bladder Distension, Other - Reproductive: Female Reproductive:Female: absent: As Per HPI, Amenorrhea, Amenorrhea/ Control, Currently Menstual, Cycle <21 Days, Cycle >35 Days, Cycle Variable, Menses 1-7 Days, Menses >/= 8 Days, Menses Variable, Cycle > 4 Weeks Between, No Menses for 6 Months, Heavy Menses, Light Menses, Normal Menses, Spotting Between Cycles , S/P Hysterectomy, Menopausal, Post Menopausal, Premenarche, Abnormal Vaginal Bleeding, Dysmenorrhea, Dyspareunia, Genital Lesions, Genital Pruritis, Pelvic Pain, Prolapse Symptoms, Sexual Dysfunction, Vaginal Discharge, Vaginal Dryness , Vaginal Odor, Vaginal Pruritis, Other - Menstruation Menstruation: absent: As Per HPI, Amenorrhea, Amenorrhea/ Control, Currently Menstual, Cycle <21 Days, Cycle >35 Days, Cycle Variable, Menses 1-7 Days, Menses >/= 8 Days, Menses Variable, Cycle > 4 Weeks Between, No Menses for 6 Months, Heavy Menses, Light Menses, Normal Menses, Spotting Between Cycles , S/P Hysterectomy, Menopausal, Post Menopausal, Premenarche, Abnormal Vaginal Bleeding, Dysmenorrhea, Other - Musculoskeletal Musculoskeletal: As Per HPI - Integumentary Integumentary: As Per HPI, Skin Pain, Skin Ulcer, Sores, Wounds - Neurological Neurological: As Per HPI - Psychiatric Psychiatric: absent: As Per HPI, Abnormal Sleep Pattern, Anhedonia, Anxiety, Auditory Hallucinations, Behavioral Changes, Change in Appetite, Change in Libido, Confusion, Depression, Difficulty Concentrating, Hallucinations, Homicidal Ideation, Hopelessness, Irritability, Memory Loss, Mood Swings, Panic Attacks, Paranoia, Suicidal Ideation, Visual Hallucinations, Tactile Hallucinations, Other - Endocrine Endocrine: absent: As Per HPI, Change in Body Appearance, Change in Libido, Cold Intolorance, Deepening of Voice, Excessive Sweating, Fatigue, Flushing, Heat Intolorance, Increase in Ring/Shoe/Hat Size, Palpitations, Polydipsia, Polyphagia, Polyuria, Other - Hematologic/Lymphatic Hematologic: absent: As Per HPI, Easy Bleeding, Easy Bruising, Lymphadenopathy, Other Past Patient History - Infectious Disease Hx of Infectious Diseases: None - Past Medical History & Family History Past Medical History?: Yes - Past Social History Smoking Status: Never Smoked - CARDIAC Hx Congestive Heart Failure: No Hx Hypercholesterolemia: Yes Hx Hypertension: Yes - PULMONARY Hx Asthma: Yes Hx Chronic Obstructive Pulmonary Disease (COPD): No - NEUROLOGICAL Hx Transient Ischemic Attacks (TIA): Yes - HEENT Other/Comment: GLASSES - NEARSIGHTEDNESS. - RENAL Hx Chronic Kidney Disease: No - ENDOCRINE/METABOLIC Hx Diabetes Mellitus Type 2: Yes Hx Hypothyroidism: No - HEMATOLOGICAL/ONCOLOGICAL Hx Anemia: Yes Hx Blood Transfusions: Yes Hx Human Immunodeficiency Virus (HIV): No - INTEGUMENTARY Hx Cellulitis: Yes (BLE) Other/Comment: Sacral decubiti, RIGHT HEEL (DTI) - MUSCULOSKELETAL/RHEUMATOLOGICAL Hx Arthritis: Yes Hx Falls: Yes Hx Fractures: Yes Hx Rheumatoid Arthritis: No - GASTROINTESTINAL Hx Colostomy: Yes Hx Diverticulitis: Yes (s/p Merrill procedure) - GENITOURINARY/GYNECOLOGICAL Hx Genitourinary Disorders: No Other/Comment: bladder fistula - PSYCHIATRIC Hx Anxiety: Yes Hx Depression: Yes Hx Substance Use: No - SURGICAL HISTORY Hx Cholecystectomy: Yes - ANESTHESIA Hx Anesthesia: Yes Hx Anesthesia Reactions: No Hx Malignant Hyperthermia: No Meds Allergies/Adverse Reactions: Allergies Allergy/AdvReac Type Severity Reaction Status Date / Time iodine Allergy RASH Verified 05/15/17 07:10 Sulfa (Sulfonamide Allergy RASH Verified 05/15/17 07:10 Antibiotics) - Medications Medications: Current Medications Aspirin (Aspirin Chewable) 81 mg PO DAILY [facility] Last Admin: 05/16/17 10:29 Dose: 81 mg Sodium Bicarbonate 75 meq/ (Sodium Chloride) 1,075 mls @ 75 mls/hr IV .[id number] [facility] Last Admin: 05/16/17 10:29 Dose: 75 mls/hr Insulin Human Regular (Novolin R) 0 unit SC ACHS [facility] PRN Reason: Protocol Last Admin: 05/16/17 12:24 Dose: Not Given Physical Exam - Constitutional Appears: Confused, Chronically Ill - Head Exam Head Exam: ATRAUMATIC, NORMAL INSPECTION, NORMOCEPHALIC - Eye Exam Eye Exam: PERRL. absent: Scleral icterus - ENT Exam ENT Exam: Mucous Membranes Dry, Normal External Ear Exam - Neck Exam Neck exam: Negative for: Lymphadenopathy - Respiratory Exam Respiratory Exam: Decreased Breath Sounds, Rales, Rhonchi - Cardiovascular Exam Cardiovascular Exam: Tachycardia, REGULAR RHYTHM, +S1, +S2 - GI/Abdominal Exam GI & Abdominal Exam: Diminished Bowel Sounds, Soft. absent: Rebound, Rigid, Tenderness - Rectal Exam Rectal Exam: Deferred - Exam Exam: NORMAL INSPECTION - Extremities Exam Extremities exam: Positive for: pedal edema, pedal pulses present. Negative for : calf tenderness, tenderness - Back Exam Back exam: absent: CVA tenderness (L), CVA tenderness (R) - Neurological Exam Neurological exam: Alert, Altered, CN II-XII Intact - Psychiatric Exam Psychiatric exam: Depressed - Skin Skin Exam: Dry Results - Vital Signs Recent Vital Signs: Last Vital Signs Temp 98.6 F 05/16/17 08:00 Pulse 74 05/16/17 08:50 Resp 12 05/16/17 08:50 BP 145/43 L 05/16/17 08:50 Pulse Ox 100 05/16/17 08:50 - Labs Result Diagrams: 05/16/17 04:57 05/16/17 04:57 Labs: Laboratory Results - last 24 hr 05/15/17 05/15/17 05/15/17 16:04 17:17 22:32 WBC RBC Hgb Hct MCV MCH MCHC RDW Plt Count MPV Neut % (Auto) Lymph % (Auto) [place] % (Auto) Eos % (Auto) Baso % (Auto) Neut # Lymph # [place] # Eos # Baso # Differential Comment APTT Sodium 129 L Potassium 4.0 Chloride 101 Carbon Dioxide 18 L Anion Gap 14 BUN 35 H Creatinine 2.0 H Est GFR ( Amer) 30 Est GFR (Non-Af Amer) 25 POC Glucose (mg/dL) Random Glucose 172 H Calcium 6.8 L Phosphorus 4.3 Magnesium 1.6 1.6 Total Bilirubin AST ALT Alkaline Phosphatase Troponin I 1.0200 H* 0.5140 H* Total Protein Albumin Globulin Albumin/Globulin Ratio Procalcitonin TSH 3rd Generation 05/16/17 05/16/17 05/16/17 04:57 04:57 04:57 WBC 6.5 D RBC 3.46 L Hgb 9.2 L D Hct 27.9 L MCV 80.7 L MCH 26.7 L MCHC 33.1 RDW 16.5 H Plt Count 103 L D MPV 8.4 Neut % (Auto) 74.8 Lymph % (Auto) 14.6 L [place] % (Auto) 9.8 Eos % (Auto) 0.3 Baso % (Auto) 0.5 Neut # 4.9 Lymph # 1.0 [place] # 0.6 Eos # 0.0 Baso # 0.0 Differential Comment APTT 59 H D Sodium 133 Potassium 3.2 L Chloride 104 Carbon Dioxide 20 L Anion Gap 13 BUN 36 H Creatinine 1.8 H Est GFR ( Amer) 34 Est GFR (Non-Af Amer) 28 POC Glucose (mg/dL) Random Glucose 82 Calcium 6.9 L Phosphorus 3.8 Magnesium 1.5 L Total Bilirubin 0.8 AST 75 H D ALT 53 H D Alkaline Phosphatase 54 Troponin I 0.3580 H* Total Protein 5.7 L Albumin 2.9 L Globulin 2.9 Albumin/Globulin Ratio 1.0 Procalcitonin TSH 3rd Generation 0.46 05/16/17 05/16/17 05/16/17 10:52 12:22 15:19 WBC RBC Hgb Hct MCV MCH MCHC RDW Plt Count MPV Neut % (Auto) Lymph % (Auto) [place] % (Auto) Eos % (Auto) Baso % (Auto) Neut # Lymph # [place] # Eos # Baso # Differential Comment APTT Sodium Potassium Chloride Carbon Dioxide Anion Gap BUN Creatinine Est GFR ( Amer) Est GFR (Non-Af Amer) POC Glucose (mg/dL) 118 H Random Glucose Calcium Phosphorus Magnesium Total Bilirubin AST ALT Alkaline Phosphatase Troponin I 0.2110 H* Total Protein Albumin Globulin Albumin/Globulin Ratio Procalcitonin 63.23 H TSH 3rd Generation Assessment & Plan (1) Altered mental status Status: Acute (2) Hyperthermia Status: Acute (3) NSTEMI (non-ST elevated myocardial infarction) Status: Acute (4) Closed fracture of left distal radius Status: Acute (5) Displaced fracture of left ulna styloid process, initial encounter for closed fracture Status: Acute (6) Fracture of distal fibula Status: Acute (7) Fracture of wrist Status: Acute (8) Leg swelling Status: Acute (9) Lumbar vertebral fracture Status: Acute (10) Small bowel obstruction Status: Acute (11) Ulcer of right heel Status: Acute (12) Depression Status: Chronic (13) Diabetes Status: Chronic (14) Hyperlipidemia Status: Chronic (15) Sacral decubitus ulcer, stage IV Status: Chronic - Assessment and Plan (Free Text) Assessment: septic work up wound care eval empiric iv antibiotics
[2017-05-16 16:27] LABS: ABG ALLEN TEST POS; ARTERIAL BLOOD GAS HEMOGLOBIN 8.7 g/dL (11.7-17.4); ARTERIAL BLOOD GAS O2 SAT 98.5 % (95-98); ARTERIAL BLOOD GAS PCO2 29 mm/Hg (35-45); ARTERIAL BLOOD GAS PH 7.44 (7.35-7.45); ARTERIAL BLOOD GAS PO2 129 mm/Hg (80-100); ARTERIAL BLOOD GAS TCO2 20.6 mmol/L (22-28)
[2017-05-16] MEDS: Ciprofloxacin 200mg/100ml D5W 100 ML IVPB SCH (18:53)
[2017-05-17] MEDS: Ciprofloxacin 200mg/100ml D5W 100 ML IVPB SCH ×2 (05:48→18:05)
[2017-05-17 06:53] LABS: BASO % 0.4 % (0.0-2.0); EOS % 0.8 % (0.0-4.0); LYMPH # 0.4 K/uL (1.0-4.3); LYMPH % 7.2 % (20.0-40.0); MEAN CORPUSCULAR HEMOGLOBIN 26.7 pg (27.0-31.0); MEAN CORPUSCULAR HGB CONC 32.9 g/dL (33.0-37.0); MEAN PLATELET VOLUME 8.7 fL (7.2-11.7); MONO # 0.4 K/uL (0.0-0.8); NEUT # 4.2 K/uL (1.8-7.0); NEUT % 83.6 % (50.0-75.0); PLATELET COUNT 93 K/uL (130-400); RBC 3.38 Mil/uL (3.80-5.20); RED CELL DISTRIBUTION WIDTH 16.8 % (11.5-14.5)
[2017-05-17 07:23] LABS: CALCIUM 7.3 mg/dl (8.6-10.4); MAGNESIUM 2.1 mg/dL (1.6-2.3)
[2017-05-17 09:04] LABS: ANISOCYTOSIS SLIGHT; BANDS 1 % (0-2); LYMPHOCYTE 4 % (20-40); MONOCYTE 6 % (0-10); NEUTROPHIL 89 % (50-75); PLATELET ESTIMATE DECREASED (NORMAL); TOTAL CELLS COUNTED 100
[2017-05-17 09:05] LABS: HYPOCHROMIC SLIGHT; POLYCHROMIC SLIGHT
[2017-05-17] MEDS: (Novolin R) Insulin Human Regular 100 units/ml vial SC SCH ×4 (10:35→22:04)
--- NOTE | 2017-05-17 11:40 | HP ---
HISTORY OF PRESENT ILLNESS: Ellen Krishna is a 71-year-old female chief complaint weakness, fatigue, tiredness. Patient has high fever 107, high blood pressure, bradycardia. Patient came to the hospital and advised admission to the hospital for acute syndrome with sepsis. Patient is kept n.p.o. Patient with stroke, history of severe depression, hypertension . PHYSICAL EXAMINATION: GENERAL: The patient is awake, alert, oriented VITAL SIGNS: Temperature ____, pulse ____. HEENT: Within normal limits. NECK: Supple. LUNGS: Symmetrical. HEART: Regular. ABDOMEN: Soft. EXTREMITIES: No edema. IMPRESSION: Patient suffers from sepsis, rule out . PLAN: Patient to get bedrest, supportive care, Zita Barksdale MD
--- NOTE | 2017-05-17 12:16 | RAD ---
Bilateral wrists 6 views History: Fracture. Comparison: None available. Findings: Left wrist: Overlying cast obscures fine osseous detail. Prominent comminuted distracted intra-articular fracture of the distal radius with prominent radial sided fracture fragment distracted approximately 2-3 millimeters. Vertically oriented extension from the radial cortex of the metaphysis to the intra-articular surface. Fracture deformity of the ulnar styloid. Degenerative changes at the 1st carpometacarpal joint space. Right wrist: Prominent narrowing of the radiocarpal joint space. Prominent degenerative changes of the 1st carpometacarpal joint space. Prominent degenerative changes noted at the articulation of the trapezium and trapezoid. Impression: Left wrist: Overlying cast obscures fine osseous detail. Prominent comminuted distracted intra-articular fracture of the distal radius with prominent radial sided fracture fragment distracted approximately 2-3 millimeters. Vertically oriented extension from the radial cortex of the metaphysis to the intra-articular surface. Fracture deformity of the ulnar styloid. Degenerative changes at the 1st carpometacarpal joint space. Right wrist: Prominent narrowing of the radiocarpal joint space. Prominent degenerative changes of the 1st carpometacarpal joint space. Prominent degenerative changes noted at the articulation of the trapezium and trapezoid. If pain persists, consider MRI.
--- NOTE | 2017-05-17 12:32 | CP.PCM.PN ---
Subjective - Date & Time of Evaluation Date of Evaluation: 05/17/17 Time of Evaluation: 11:00 - Subjective Subjective: events noted procalcitonin elevated cultures pending Objective - Vital Signs/Intake and Output Vital Signs (last 24 hours): Temp Pulse Resp BP Pulse Ox 98.3 F 77 22 179/122 H 98 05/17/17 08:00 05/17/17 11:00 05/17/17 11:00 05/17/17 09:39 05/17/17 11:00 Intake and Output: 05/17/17 05/17/17 06:59 18:59 Intake Total 120 300 Output Total 480 195 Balance -360 105 - Medications Medications: Current Medications Aspirin (Aspirin Chewable) 81 mg PO DAILY [facility] Last Admin: 05/17/17 11:23 Dose: 81 mg Famotidine (Pepcid) 20 mg PO DAILY [facility] Last Admin: 05/17/17 11:24 Dose: 20 mg Heparin Sodium (Porcine) (Heparin) 5,000 units SC Q8 [facility] Last Admin: 05/17/17 11:24 Dose: 5,000 units Ciprofloxacin (Cipro 200mg/100ml D5w) 100 mls @ 67 mls/hr IVPB Q12H [facility] Last Admin: 05/17/17 05:48 Dose: 67 mls/hr Insulin Human Regular (Novolin R) 0 unit SC ACHS [facility] PRN Reason: Protocol Last Admin: 05/17/17 10:35 Dose: Not Given Lisinopril (Zestril) 40 mg PO DAILY [facility] Last Admin: 05/17/17 11:24 Dose: 40 mg - Labs Labs: 05/17/17 06:44 05/17/17 06:44 PT 12.7 SECONDS (9.7-12.2) H 05/15/17 07:13 INR 1.1 05/15/17 07:13 APTT 59 SECONDS (21-34) H D 05/16/17 04:57 - Constitutional Appears: Toxic, Chronically Ill - Head Exam Head Exam: ATRAUMATIC, NORMOCEPHALIC - Eye Exam Eye Exam: PERRL - ENT Exam ENT Exam: Mucous Membranes Dry - Neck Exam Neck Exam: absent: Lymphadenopathy - Respiratory Exam Respiratory Exam: Decreased Breath Sounds - Cardiovascular Exam Cardiovascular Exam: REGULAR RHYTHM - GI/Abdominal Exam GI & Abdominal Exam: Distended, Soft - Rectal Exam Rectal Exam: Deferred - Exam Exam: NORMAL INSPECTION - Extremities Exam Extremities Exam: absent: Pedal Edema - Back Exam Back Exam: absent: CVA tenderness (L), CVA tenderness (R) - Neurological Exam Neurological Exam: Alert, Awake Assessment and Plan (1) Altered mental status Status: Acute (2) Hyperthermia Status: Acute (3) NSTEMI (non-ST elevated myocardial infarction) Status: Acute (4) Closed fracture of left distal radius Status: Acute (5) Displaced fracture of left ulna styloid process, initial encounter for closed fracture Status: Acute (6) Fracture of distal fibula Status: Acute (7) Fracture of wrist Status: Acute (8) Leg swelling Status: Acute (9) Lumbar vertebral fracture Status: Acute (10) Small bowel obstruction Status: Acute (11) Ulcer of right heel Status: Acute (12) Depression Status: Chronic (13) Diabetes Status: Chronic (14) Hyperlipidemia Status: Chronic (15) Sacral decubitus ulcer, stage IV Status: Chronic
--- NOTE | 2017-05-17 12:33 | VASCLAB ---
PROCEDURE: Lower Extremity Venous Duplex Exam. HISTORY: Pain, r/o DVT PRIORS: None. TECHNIQUE: Bilateral common femoral, femoral, popliteal and posterior tibial, peroneal and great saphenous veins were evaluated. Flow was assessed with color Doppler, compressibility, assessment of phasic flow and augmentation response. Report prepared by ALICIA Madera FINDINGS: RIGHT: 1. Common Femoral Vein: 1.1. Compressibility - Fully compressible: Thrombus - None : Flow - Phasic: Augmentation -Normal: Reflux - None. 2. Femoral Vein: (proximal and mid views only) swelling distally 2.1. Compressibility - Fully compressible: Thrombus - None : Flow - Phasic: Augmentation -Normal: Reflux - None. 3. Popliteal Vein: (wall thickening noted) 3.1. Compressibility - Fully compressible: Thrombus - None : Flow - Phasic: Augmentation -Normal: Reflux - None. 4. Posterior Tibial Vein: 4.1. Compressibility - Fully compressible: Thrombus - None: Flow - Phasic: Augmentation -Normal: Reflux - None. 5. Peroneal Vein: 5.1. Unable to image/ diminutive caliber 6. Great Saphenous Vein: 6.1. Compressibility - Fully compressible: Thrombus - None: Flow - Phasic: Augmentation - Normal: Reflux - None. LEFT: 1. Common Femoral Vein: 1.1. Compressibility - Fully compressible: Thrombus - None: Flow - Phasic: Augmentation -Normal: Reflux - None. 2. Femoral Vein: (proximal and mid views only) swelling distally 2.1. Compressibility - Fully compressible: Thrombus - None: Flow - Phasic: Augmentation -Normal: Reflux - None. 3. Popliteal Vein: 3.1. Compressibility - Fully compressible: Thrombus - None : Flow - Phasic: Augmentation -Normal: Reflux - None. 4. Posterior Tibial Vein: 4.1. Unable to image/ diminutive caliber 5. Peroneal Vein: 5.1. Unable to image/ diminutive caliber 6. Great Saphenous Vein: 6.1. Compressibility - Fully compressible: Thrombus - None: Flow - Phasic: Augmentation - Normal: Reflux - None. OTHER FINDINGS: Right: None significant. Left: None significant. IMPRESSION: 1. No evidence of deep or superficial vein thrombosis of bilateral lower extremities, for those clearly imaged veins. 2. Pulsatile venous flow noted bilaterally. 3. Please refer to the table above for detailed imaging information.
--- NOTE | 2017-05-17 12:33 | VASCLAB ---
PROCEDURE: Right Upper Extremity Venous Duplex Exam HISTORY: SWELLING, PAIN PRIORS: None. TECHNIQUE: Right upper extremity, internal jugular, subclavian, axillary, brachial, ulnar, radial, basilic and upper cephalic veins were evaluated. Flow was assessed with color Doppler, compressibility, assessment of phasic flow and augmentation response. Report prepared by ALICIA [place] FINDINGS: RIGHT: 1. Internal Jugular: 1.1. Unable to examine due to lines in right neck area 2. Subclavian: 2.1. Compressibility - Fully compressible: Thrombus - None : Flow - Phasic: Augmentation -Normal: Reflux - None. 3. Axillary: 3.1. Compressibility - Fully compressible: Thrombus - None : Flow - Phasic: Augmentation -Normal: Reflux - None. 4. Brachial: 4.1. Compressibility - Fully compressible: Thrombus - None: Flow - Phasic: Augmentation -Normal: Reflux - None. 5. Ulnar: 5.1. Compressibility - Fully compressible: Thrombus - None: Flow - Phasic: Augmentation -Normal: Reflux - None. 6. Radial: 6.1. Compressibility - Fully compressible: Thrombus - None: Flow - Phasic: Augmentation - Normal: Reflux - None. 7. Cephalic: (upper arm and mid-distal forearm views only) lines and dressing from antecubital to proximal forearm territory. 7.1. Compressibility - Fully compressible: Thrombus - None: Flow - Phasic: Augmentation -Normal: Reflux - None. 8. Basilic: 8.1. Compressibility - Incompressible: Thrombus - Yes - Non compressible at distal forearm. OTHER FINDINGS: Findings were reported by the electroencephalograph technologist to Garth Boogie at 12: 04 p.m. IMPRESSION: Right: 1. Superficial phlebitis of the right basilic vein, at distal forearm level. 2. No evidence of deep vein thrombosis of the right upper extremity, for the examined veins. Normal venous flow noted in the left internal jugular vein.
--- NOTE | 2017-05-17 15:15 | CP.CCUPN ---
<Nathalia Castro - Last Filed: 05/17/17 15:11> CCU Subjective - Physician Review Subjective (Free Text): 05/17/17 15:11 Patient seen and examined at bedside. Patient resting comfortably in bed with no new complaints at this time other than continued pain in her b/l upper extremities. She is s/p fall with fracture of the left wrist. Patient appears depressed and tearful, however, she denies CP, SOB, palpitations, abdominal pain , n/v/d, FRANK. CCU Objective - Vital Signs / Intake & Output Vital Signs (Last 4 hours): Vital Signs Pulse Resp BP Pulse Ox 05/17/17 12:31 96 H 16 122/68 05/17/17 12:00 81 10 L 97 Intake and Output (Last 8hrs): Intake & Output 05/17/17 05/17/17 05/17/17 06:59 14:59 22:59 Intake Total 20 360 Output Total 340 195 Balance -320 165 Weight 175 lb Intake: Oral 20 360 Output: Urine 340 195 Urethral (Langston) 340 195 - Physical Exam Head: Positive for: Atraumatic, Normocephalic Conjunctiva: Positive for: Normal Mouth: Positive for: Moist Mucous Membranes Neck: Positive for: Trachea Midline Respiratory/Chest: Positive for: Clear to Auscultation Cardiovascular: Positive for: Regular Rate and Rhythm Abdomen: Positive for: Normal Bowel Sounds Upper Extremity: Positive for: Normal Inspection Lower Extremity: Positive for: Normal Inspection Skin: Positive for: Warm Psychiatric: Positive for: Lethargic - Medications Active Medications: Active Medications Generic Name Dose Route Start Last Admin Trade Name Freq PRN Reason Stop Dose Admin Aspirin 81 mg 05/16/17 10:00 05/17/17 11:23 Aspirin Chewable PO 81 mg DAILY GIORGI Administration Famotidine 20 mg 05/17/17 10:00 05/17/17 11:24 Pepcid PO 20 mg DAILY GIORGI Administration Heparin Sodium (Porcine) 5,000 units 05/17/17 09:45 05/17/17 11:24 Heparin SC 5,000 units Q8 GIORGI Administration Ciprofloxacin 100 mls @ 67 mls/hr 05/16/17 18:00 05/17/17 05:48 Cipro 200mg/100ml D5w IVPB 67 mls/hr Q12H GIORGI Administration Insulin Human Regular 0 unit 05/16/17 11:30 05/17/17 14:14 Novolin R SC Not Given ACHS [facility] Protocol Lisinopril 40 mg 05/17/17 10:00 05/17/17 11:24 Zestril PO 40 mg DAILY GIORGI Administration - Patient Studies Lab Studies: Microbiology Studies 05/15/17 07:20 Blood Culture - Preliminary Blood-Venous NO GROWTH AFTER 48 HOURS 05/15/17 06:50 Blood Culture - Preliminary Blood-Venous NO GROWTH AFTER 48 HOURS 05/15/17 20:56 MRSA Culture (Admit) - Final Naris MRSA NOT DETECTED Lab Studies 05/17/17 05/17/17 05/17/17 Range/Units 11:31 07:36 06:44 WBC (4.8-10.8) K/uL RBC (3.80-5.20) Mil/uL Hgb (11.0-16.0) g/dL Hct (34.0-47.0) % MCV (81.0-99.0) fL MCH (27.0-31.0) pg MCHC (33.0-37.0) g/dL RDW (11.5-14.5) % Plt Count (130-400) K/uL MPV (7.2-11.7) fL Neut % (Auto) (50.0-75.0) % Lymph % (Auto) (20.0-40.0) % [place] % (Auto) (0.0-10.0) % Eos % (Auto) (0.0-4.0) % Baso % (Auto) (0.0-2.0) % Neut # (1.8-7.0) K/uL Lymph # (1.0-4.3) K/uL [place] # (0.0-0.8) K/uL Eos # (0.0-0.7) K/uL Baso # (0.0-0.2) K/uL Neutrophils % (Manual) (50-75) % Band Neutrophils % (0-2) % Lymphocytes % (Manual) (20-40) % Monocytes % (Manual) (0-10) % Platelet Estimate (NORMAL) Polychromasia Hypochromasia (manual) Anisocytosis (manual) Puncture Site pCO2 (35-45) mm/Hg pO2 (80-100) mm/Hg HCO3 (21-28) mmol/L ABG pH (7.35-7.45) ABG Total CO2 (22-28) mmol/L ABG O2 Saturation (95-98) % ABG Base Excess (-2.0-3.0) mmol/L ABG Hemoglobin (11.7-17.4) g/dL ABG Carboxyhemoglobin (0.5-1.5) % POC ABG HHb (Measured) (0.0-5.0) % ABG Methemoglobin (0.0-3.0) % Jose Test A-a O2 Difference mm/Hg Respiratory Index Hgb O2 Saturation (95.0-98.0) % FiO2 % Sodium 135 (132-148) mmol/L Potassium 3.9 (3.6-5.2) mmol/L Chloride 105 (98-107) mmol/L Carbon Dioxide 23 (22-30) mmol/L Anion Gap 11 (10-20) BUN 22 H (7-17) mg/dL Creatinine 1.1 (0.7-1.2) mg/dL Est GFR ( Amer) 59 Est GFR (Non-Af Amer) 49 POC Glucose (mg/dL) 113 H 109 (65-110) mg/dL Random Glucose 100 (65-105) mg/dL Hemoglobin A1c (4.2-6.5) % Calcium 7.3 L (8.6-10.4) mg/dl Phosphorus 2.5 (2.5-4.5) mg/dL Magnesium 2.1 (1.6-2.3) mg/dL Total Bilirubin 0.8 (0.2-1.3) mg/dL AST 46 H D (14-36) U/L ALT 43 (9-52) U/L Alkaline Phosphatase 57 (38-126) U/L Troponin I (0.00-0.120) ng/mL Total Protein 5.9 L (6.3-8.3) g/dL Albumin 3.0 L (3.5-5.0) g/dL Globulin 2.9 (2.2-3.9) gm/dL Albumin/Globulin Ratio 1.0 (1.0-2.1) Random Vancomycin ug/mL 05/17/17 05/17/17 05/17/17 Range/Units 06:44 06:44 00:23 WBC 5.0 (4.8-10.8) K/uL RBC 3.38 L (3.80-5.20) Mil/uL Hgb 9.0 L (11.0-16.0) g/dL Hct 27.4 L (34.0-47.0) % MCV 81.0 (81.0-99.0) fL MCH 26.7 L (27.0-31.0) pg MCHC 32.9 L (33.0-37.0) g/dL RDW 16.8 H (11.5-14.5) % Plt Count 93 L (130-400) K/uL MPV 8.7 (7.2-11.7) fL Neut % (Auto) 83.6 H (50.0-75.0) % Lymph % (Auto) 7.2 L (20.0-40.0) % [place] % (Auto) 8.0 (0.0-10.0) % Eos % (Auto) 0.8 (0.0-4.0) % Baso % (Auto) 0.4 (0.0-2.0) % Neut # 4.2 (1.8-7.0) K/uL Lymph # 0.4 L (1.0-4.3) K/uL [place] # 0.4 (0.0-0.8) K/uL Eos # 0.0 (0.0-0.7) K/uL Baso # 0.0 (0.0-0.2) K/uL Neutrophils % (Manual) 89 H (50-75) % Band Neutrophils % 1 (0-2) % Lymphocytes % (Manual) 4 L (20-40) % Monocytes % (Manual) 6 (0-10) % Platelet Estimate Decreased L (NORMAL) Polychromasia Slight Hypochromasia (manual) Slight Anisocytosis (manual) Slight Puncture Site pCO2 (35-45) mm/Hg pO2 (80-100) mm/Hg HCO3 (21-28) mmol/L ABG pH (7.35-7.45) ABG Total CO2 (22-28) mmol/L ABG O2 Saturation (95-98) % ABG Base Excess (-2.0-3.0) mmol/L ABG Hemoglobin (11.7-17.4) g/dL ABG Carboxyhemoglobin (0.5-1.5) % POC ABG HHb (Measured) (0.0-5.0) % ABG Methemoglobin (0.0-3.0) % Jose Test A-a O2 Difference mm/Hg Respiratory Index Hgb O2 Saturation (95.0-98.0) % FiO2 % Sodium (132-148) mmol/L Potassium (3.6-5.2) mmol/L Chloride (98-107) mmol/L Carbon Dioxide (22-30) mmol/L Anion Gap (10-20) BUN (7-17) mg/dL Creatinine (0.7-1.2) mg/dL Est GFR ( Amer) Est GFR (Non-Af Amer) POC Glucose (mg/dL) 95 (65-110) mg/dL Random Glucose (65-105) mg/dL Hemoglobin A1c (4.2-6.5) % Calcium (8.6-10.4) mg/dl Phosphorus (2.5-4.5) mg/dL Magnesium (1.6-2.3) mg/dL Total Bilirubin (0.2-1.3) mg/dL AST (14-36) U/L ALT (9-52) U/L Alkaline Phosphatase (38-126) U/L Troponin I (0.00-0.120) ng/mL Total Protein (6.3-8.3) g/dL Albumin (3.5-5.0) g/dL Globulin (2.2-3.9) gm/dL Albumin/Globulin Ratio (1.0-2.1) Random Vancomycin 19.23 ug/mL 05/16/17 05/16/17 05/16/17 Range/Units 21:21 16:22 16:10 WBC (4.8-10.8) K/uL RBC (3.80-5.20) Mil/uL Hgb (11.0-16.0) g/dL Hct (34.0-47.0) % MCV (81.0-99.0) fL MCH (27.0-31.0) pg MCHC (33.0-37.0) g/dL RDW (11.5-14.5) % Plt Count (130-400) K/uL MPV (7.2-11.7) fL Neut % (Auto) (50.0-75.0) % Lymph % (Auto) (20.0-40.0) % [place] % (Auto) (0.0-10.0) % Eos % (Auto) (0.0-4.0) % Baso % (Auto) (0.0-2.0) % Neut # (1.8-7.0) K/uL Lymph # (1.0-4.3) K/uL [place] # (0.0-0.8) K/uL Eos # (0.0-0.7) K/uL Baso # (0.0-0.2) K/uL Neutrophils % (Manual) (50-75) % Band Neutrophils % (0-2) % Lymphocytes % (Manual) (20-40) % Monocytes % (Manual) (0-10) % Platelet Estimate (NORMAL) Polychromasia Hypochromasia (manual) Anisocytosis (manual) Puncture Site Rra pCO2 29 L (35-45) mm/Hg pO2 129 H (80-100) mm/Hg HCO3 22.0 (21-28) mmol/L ABG pH 7.44 (7.35-7.45) ABG Total CO2 20.6 L (22-28) mmol/L ABG O2 Saturation 98.5 H (95-98) % ABG Base Excess -3.8 L (-2.0-3.0) mmol/L ABG Hemoglobin 8.7 L (11.7-17.4) g/dL ABG Carboxyhemoglobin 1.3 (0.5-1.5) % POC ABG HHb (Measured) 1.5 (0.0-5.0) % ABG Methemoglobin 0.9 (0.0-3.0) % Jose Test Pos A-a O2 Difference -16.0 mm/Hg Respiratory Index -0.1 Hgb O2 Saturation 96.4 (95.0-98.0) % FiO2 21.0 % Sodium (132-148) mmol/L Potassium (3.6-5.2) mmol/L Chloride (98-107) mmol/L Carbon Dioxide (22-30) mmol/L Anion Gap (10-20) BUN (7-17) mg/dL Creatinine (0.7-1.2) mg/dL Est GFR ( Amer) Est GFR (Non-Af Amer) POC Glucose (mg/dL) 100 97 (65-110) mg/dL Random Glucose (65-105) mg/dL Hemoglobin A1c (4.2-6.5) % Calcium (8.6-10.4) mg/dl Phosphorus (2.5-4.5) mg/dL Magnesium (1.6-2.3) mg/dL Total Bilirubin (0.2-1.3) mg/dL AST (14-36) U/L ALT (9-52) U/L Alkaline Phosphatase (38-126) U/L Troponin I (0.00-0.120) ng/mL Total Protein (6.3-8.3) g/dL Albumin (3.5-5.0) g/dL Globulin (2.2-3.9) gm/dL Albumin/Globulin Ratio (1.0-2.1) Random Vancomycin ug/mL 05/16/17 05/15/17 Range/Units 15:19 07:13 WBC (4.8-10.8) K/uL RBC (3.80-5.20) Mil/uL Hgb (11.0-16.0) g/dL Hct (34.0-47.0) % MCV (81.0-99.0) fL MCH (27.0-31.0) pg MCHC (33.0-37.0) g/dL RDW (11.5-14.5) % Plt Count (130-400) K/uL MPV (7.2-11.7) fL Neut % (Auto) (50.0-75.0) % Lymph % (Auto) (20.0-40.0) % [place] % (Auto) (0.0-10.0) % Eos % (Auto) (0.0-4.0) % Baso % (Auto) (0.0-2.0) % Neut # (1.8-7.0) K/uL Lymph # (1.0-4.3) K/uL [place] # (0.0-0.8) K/uL Eos # (0.0-0.7) K/uL Baso # (0.0-0.2) K/uL Neutrophils % (Manual) (50-75) % Band Neutrophils % (0-2) % Lymphocytes % (Manual) (20-40) % Monocytes % (Manual) (0-10) % Platelet Estimate (NORMAL) Polychromasia Hypochromasia (manual) Anisocytosis (manual) Puncture Site pCO2 (35-45) mm/Hg pO2 (80-100) mm/Hg HCO3 (21-28) mmol/L ABG pH (7.35-7.45) ABG Total CO2 (22-28) mmol/L ABG O2 Saturation (95-98) % ABG Base Excess (-2.0-3.0) mmol/L ABG Hemoglobin (11.7-17.4) g/dL ABG Carboxyhemoglobin (0.5-1.5) % POC ABG HHb (Measured) (0.0-5.0) % ABG Methemoglobin (0.0-3.0) % Jose Test A-a O2 Difference mm/Hg Respiratory Index Hgb O2 Saturation (95.0-98.0) % FiO2 % Sodium (132-148) mmol/L Potassium (3.6-5.2) mmol/L Chloride (98-107) mmol/L Carbon Dioxide (22-30) mmol/L Anion Gap (10-20) BUN (7-17) mg/dL Creatinine (0.7-1.2) mg/dL Est GFR ( Amer) Est GFR (Non-Af Amer) POC Glucose (mg/dL) (65-110) mg/dL Random Glucose (65-105) mg/dL Hemoglobin A1c 6.0 (4.2-6.5) % Calcium (8.6-10.4) mg/dl Phosphorus (2.5-4.5) mg/dL Magnesium (1.6-2.3) mg/dL Total Bilirubin (0.2-1.3) mg/dL AST (14-36) U/L ALT (9-52) U/L Alkaline Phosphatase (38-126) U/L Troponin I 0.2110 H* (0.00-0.120) ng/mL Total Protein (6.3-8.3) g/dL Albumin (3.5-5.0) g/dL Globulin (2.2-3.9) gm/dL Albumin/Globulin Ratio (1.0-2.1) Random Vancomycin ug/mL Laboratory Results - last 24 hr 05/15/17 05/16/17 05/16/17 07:13 15:19 16:10 WBC RBC Hgb Hct MCV MCH MCHC RDW Plt Count MPV Neut % (Auto) Lymph % (Auto) [place] % (Auto) Eos % (Auto) Baso % (Auto) Neut # Lymph # [place] # Eos # Baso # Neutrophils % (Manual) Band Neutrophils % Lymphocytes % (Manual) Monocytes % (Manual) Platelet Estimate Polychromasia Hypochromasia (manual) Anisocytosis (manual) Puncture Site Rra pCO2 29 L pO2 129 H HCO3 22.0 ABG pH 7.44 ABG Total CO2 20.6 L ABG O2 Saturation 98.5 H ABG Base Excess -3.8 L ABG Hemoglobin 8.7 L ABG Carboxyhemoglobin 1.3 POC ABG HHb (Measured) 1.5 ABG Methemoglobin 0.9 Jose Test Pos A-a O2 Difference -16.0 Respiratory Index -0.1 Hgb O2 Saturation 96.4 FiO2 21.0 Sodium Potassium Chloride Carbon Dioxide Anion Gap BUN Creatinine Est GFR ( Amer) Est GFR (Non-Af Amer) POC Glucose (mg/dL) Random Glucose Hemoglobin A1c 6.0 Calcium Phosphorus Magnesium Total Bilirubin AST ALT Alkaline Phosphatase Troponin I 0.2110 H* Total Protein Albumin Globulin Albumin/Globulin Ratio Random Vancomycin 05/16/17 05/16/17 05/17/17 16:22 21:21 00:23 WBC RBC Hgb Hct MCV MCH MCHC RDW Plt Count MPV Neut % (Auto) Lymph % (Auto) [place] % (Auto) Eos % (Auto) Baso % (Auto) Neut # Lymph # [place] # Eos # Baso # Neutrophils % (Manual) Band Neutrophils % Lymphocytes % (Manual) Monocytes % (Manual) Platelet Estimate Polychromasia Hypochromasia (manual) Anisocytosis (manual) Puncture Site pCO2 pO2 HCO3 ABG pH ABG Total CO2 ABG O2 Saturation ABG Base Excess ABG Hemoglobin ABG Carboxyhemoglobin POC ABG HHb (Measured) ABG Methemoglobin Jose Test A-a O2 Difference Respiratory Index Hgb O2 Saturation FiO2 Sodium Potassium Chloride Carbon Dioxide Anion Gap BUN Creatinine Est GFR ( Amer) Est GFR (Non-Af Amer) POC Glucose (mg/dL) 97 100 95 Random Glucose Hemoglobin A1c Calcium Phosphorus Magnesium Total Bilirubin AST ALT Alkaline Phosphatase Troponin I Total Protein Albumin Globulin Albumin/Globulin Ratio Random Vancomycin 05/17/17 05/17/17 05/17/17 06:44 06:44 06:44 WBC 5.0 RBC 3.38 L Hgb 9.0 L Hct 27.4 L MCV 81.0 MCH 26.7 L MCHC 32.9 L RDW 16.8 H Plt Count 93 L MPV 8.7 Neut % (Auto) 83.6 H Lymph % (Auto) 7.2 L [place] % (Auto) 8.0 Eos % (Auto) 0.8 Baso % (Auto) 0.4 Neut # 4.2 Lymph # 0.4 L [place] # 0.4 Eos # 0.0 Baso # 0.0 Neutrophils % (Manual) 89 H Band Neutrophils % 1 Lymphocytes % (Manual) 4 L Monocytes % (Manual) 6 Platelet Estimate Decreased L Polychromasia Slight Hypochromasia (manual) Slight Anisocytosis (manual) Slight Puncture Site pCO2 pO2 HCO3 ABG pH ABG Total CO2 ABG O2 Saturation ABG Base Excess ABG Hemoglobin ABG Carboxyhemoglobin POC ABG HHb (Measured) ABG Methemoglobin Jose Test A-a O2 Difference Respiratory Index Hgb O2 Saturation FiO2 Sodium 135 Potassium 3.9 Chloride 105 Carbon Dioxide 23 Anion Gap 11 BUN 22 H Creatinine 1.1 Est GFR ( Amer) 59 Est GFR (Non-Af Amer) 49 POC Glucose (mg/dL) Random Glucose 100 Hemoglobin A1c Calcium 7.3 L Phosphorus 2.5 Magnesium 2.1 Total Bilirubin 0.8 AST 46 H D ALT 43 Alkaline Phosphatase 57 Troponin I Total Protein 5.9 L Albumin 3.0 L Globulin 2.9 Albumin/Globulin Ratio 1.0 Random Vancomycin 19.23 05/17/17 05/17/17 07:36 11:31 WBC RBC Hgb Hct MCV MCH MCHC RDW Plt Count MPV Neut % (Auto) Lymph % (Auto) [place] % (Auto) Eos % (Auto) Baso % (Auto) Neut # Lymph # [place] # Eos # Baso # Neutrophils % (Manual) Band Neutrophils % Lymphocytes % (Manual) Monocytes % (Manual) Platelet Estimate Polychromasia Hypochromasia (manual) Anisocytosis (manual) Puncture Site pCO2 pO2 HCO3 ABG pH ABG Total CO2 ABG O2 Saturation ABG Base Excess ABG Hemoglobin ABG Carboxyhemoglobin POC ABG HHb (Measured) ABG Methemoglobin Jose Test A-a O2 Difference Respiratory Index Hgb O2 Saturation FiO2 Sodium Potassium Chloride Carbon Dioxide Anion Gap BUN Creatinine Est GFR ( Amer) Est GFR (Non-Af Amer) POC Glucose (mg/dL) 109 113 H Random Glucose Hemoglobin A1c Calcium Phosphorus Magnesium Total Bilirubin AST ALT Alkaline Phosphatase Troponin I Total Protein Albumin Globulin Albumin/Globulin Ratio Random Vancomycin Fingerstick Blood Sugar Results: 100 Review of Systems - Review of Systems All systems: reviewed and no additional remarkable complaints except (as per HPI ) Critical Care Progress Note - Nutrition Nutrition: Nutrition Category Date Time Status Consistent Carbohydrate [DIET] Diets 05/17/17 Breakfast Active Assessment/Plan - Assessment and Plan (Free Text) Assessment: R/o serotonin syndrome AMS Hyperthermia NSTEMI HTN Right heel ulcer Wrist and ankle fracture h/o depression h/o anxiety h/o TIA h/o IDDM h/o diverticulitis h/o anemia h/o arthritis h/o stage 4 sacral decubitus Plan: Disposition: Patient stable for transfer to regular floor. Neuro: Pt is A&Ox3, good mentation. R/o serotonin syndrome. Pt on several SSRi/ SNRi outpt: zoloft, cymbalta, wellbutrin CT w/out contrast: moderate atrophy, no evidence of acute intracranial hemorrhage, mass effect or midline shift. Cardio: HR: 79 BP: hypertensive at 150/48 EKG 05/15/17 wide complex tachycardia: resolved currently NSR @ 79 NSTEMI with elevated troponin 0.5210/ 1.0200/ 0.5140 on 05/15/17 0.3580/ 0.2110 on 05/16/17 Consult: Dr. Watson 05/15/17 Echo order 05/15/17 pending result: LV function Continue ASA 81 mg PO daily GIORGI, 05/17/17 Lisinopril 40 mg PO daily GIORGI Respiratory: no acute complaint , O2 sat: 99 ra Renal: I: 360 ml oral ; O: 195 ml langston; 24H Balance: +165 on 05/17/17 BUN/Cr: 22/1.1 from 35/2.0 on 05/15/17; GEMA resolved D/C langston D/C sodium bicarbonate Fluids, electrolytes, nutrition Electrolytes WNL except for those mentioned below Calcium: 7.3 Albumin: 3.0 Fluids: continuous Cipro 100 mls @67 mls/hr Q12H GIORGI ; D/C sodium bicarb. Nutrition: D/C NG tube, advance pt to pure diet consistent carbohydrate - pt doesn't have her dentures at the moment. MSK: left wrist fracture and right wrist ecchymosis and tenderness B/L wrist xray 05/17/17: Left distracted intra-articular fracture of distal radius from 04/25/17 fall Right wrist shows chronic degenerative diseases Venous duplex study showed evidence phlebitis of the right basilic vein, no evidence of DVT Infectious disease: Sepsis Afebrile since 05/15/17. WBC: 5.8 from 15.8 on 05/17/17 Blood Cultures: no growth after 48 hrs pending Gram stain Right upper extremities swelling Venous duplex study showed evidence phlebitis of the right basilic vein, no evidence of DVT Procalcitonin 63.23 on 05/16/[address] Israel continuous Cipro 100 mls @67 mls/hr Q12H GIORGI D/C: TLC 05/17/17 after picc line inserted Start a Picc Line 05/17/17 Right heel ulcer, chronic stage 4 decubitus ulcer - wound care seeing patient Hematology H&H: 9.0/27.4 from 13.6/40.8 on 05/15/17 Plt: 93 from 335 on 05/15/17 PT/PTT/INR: 12.7/25/1.1 (from 05/15/17) GI: no complaint, normal bowel. D/C NG tube 05/17/17 Endocrine: Hx of IDDM, blood glucose controlled @ 100 - monitor Continue sliding scale insulin human regular novolin Start pt on pure diabetic diet Prophylaxis GI: Famotidine @ 20 mg PO daily giorgi DVT: Heparin 5000 units SC Q8 GIORGI <Tyler Brooks - Last Filed: 05/17/17 22:19> CCU Subjective - Physician Review Events Since Last Encounter (Free Text): 05/17/17 22:19 spoke to Patients daughter Ms Mary Krishna as requested patients diagnoses and condition discussed patient had been downgraded to regular floor family requesting transfer to [facility] for care by her PMD. Dr Cantu aware and will make make necessary arrangements tomorrow CCU Objective - Vital Signs / Intake & Output Vital Signs (Last 4 hours): Vital Signs Pulse Resp 05/17/17 20:00 79 26 H 05/17/17 19:00 78 16 Intake and Output (Last 8hrs): Intake & Output 05/17/17 05/17/17 05/17/17 06:59 14:59 22:59 Intake Total 20 360 280 Output Total 340 195 500 Balance -320 165 -220 Weight 175 lb Intake: Intake, IV Amount 100 Right Upper arm 100 Oral 20 360 180 Output: Urine 340 195 Urethral (Langston) 340 195 Stool 500 - Medications Active Medications: Active Medications Generic Name Dose Route Start Last Admin Trade Name Freq PRN Reason Stop Dose Admin Aspirin 81 mg 05/16/17 10:00 05/17/17 11:23 Aspirin Chewable PO 81 mg DAILY GIORGI Administration Famotidine 20 mg 05/17/17 10:00 05/17/17 11:24 Pepcid PO 20 mg DAILY GIORGI Administration Heparin Sodium (Porcine) 5,000 units 05/17/17 09:45 05/17/17 22:10 Heparin SC 5,000 units Q8 GIORGI Administration Ciprofloxacin 100 mls @ 67 mls/hr 05/16/17 18:00 05/17/17 18:05 Cipro 200mg/100ml D5w IVPB 67 mls/hr Q12H GIORGI Administration Insulin Human Regular 0 unit 05/16/17 11:30 05/17/17 22:04 Novolin R SC Not Given ACHS [facility] Protocol Lisinopril 40 mg 05/17/17 10:00 05/17/17 11:24 Zestril PO 40 mg DAILY GIORGI Administration - Patient Studies Lab Studies: Microbiology Studies 05/15/17 07:20 Blood Culture - Preliminary Blood-Venous NO GROWTH AFTER 48 HOURS 05/15/17 06:50 Blood Culture - Preliminary Blood-Venous NO GROWTH AFTER 48 HOURS 05/15/17 20:56 MRSA Culture (Admit) - Final Naris MRSA NOT DETECTED Lab Studies 05/17/17 05/17/17 05/17/17 Range/Units 21:15 16:23 11:31 WBC (4.8-10.8) K/uL RBC (3.80-5.20) Mil/uL Hgb (11.0-16.0) g/dL Hct (34.0-47.0) % MCV (81.0-99.0) fL MCH (27.0-31.0) pg MCHC (33.0-37.0) g/dL RDW (11.5-14.5) % Plt Count (130-400) K/uL MPV (7.2-11.7) fL Neut % (Auto) (50.0-75.0) % Lymph % (Auto) (20.0-40.0) % [place] % (Auto) (0.0-10.0) % Eos % (Auto) (0.0-4.0) % Baso % (Auto) (0.0-2.0) % Neut # (1.8-7.0) K/uL Lymph # (1.0-4.3) K/uL [place] # (0.0-0.8) K/uL Eos # (0.0-0.7) K/uL Baso # (0.0-0.2) K/uL Neutrophils % (Manual) (50-75) % Band Neutrophils % (0-2) % Lymphocytes % (Manual) (20-40) % Monocytes % (Manual) (0-10) % Platelet Estimate (NORMAL) Polychromasia Hypochromasia (manual) Anisocytosis (manual) Sodium (132-148) mmol/L Potassium (3.6-5.2) mmol/L Chloride (98-107) mmol/L Carbon Dioxide (22-30) mmol/L Anion Gap (10-20) BUN (7-17) mg/dL Creatinine (0.7-1.2) mg/dL Est GFR ( Amer) Est GFR (Non-Af Amer) POC Glucose (mg/dL) 89 106 113 H (65-110) mg/dL Random Glucose (65-105) mg/dL Hemoglobin A1c (4.2-6.5) % Calcium (8.6-10.4) mg/dl Phosphorus (2.5-4.5) mg/dL Magnesium (1.6-2.3) mg/dL Total Bilirubin (0.2-1.3) mg/dL AST (14-36) U/L ALT (9-52) U/L Alkaline Phosphatase (38-126) U/L Total Protein (6.3-8.3) g/dL Albumin (3.5-5.0) g/dL Globulin (2.2-3.9) gm/dL Albumin/Globulin Ratio (1.0-2.1) Random Vancomycin ug/mL 05/17/17 05/17/17 05/17/17 Range/Units 07:36 06:44 06:44 WBC 5.0 (4.8-10.8) K/uL RBC 3.38 L (3.80-5.20) Mil/uL Hgb 9.0 L (11.0-16.0) g/dL Hct 27.4 L (34.0-47.0) % MCV 81.0 (81.0-99.0) fL MCH 26.7 L (27.0-31.0) pg MCHC 32.9 L (33.0-37.0) g/dL RDW 16.8 H (11.5-14.5) % Plt Count 93 L (130-400) K/uL MPV 8.7 (7.2-11.7) fL Neut % (Auto) 83.6 H (50.0-75.0) % Lymph % (Auto) 7.2 L (20.0-40.0) % [place] % (Auto) 8.0 (0.0-10.0) % Eos % (Auto) 0.8 (0.0-4.0) % Baso % (Auto) 0.4 (0.0-2.0) % Neut # 4.2 (1.8-7.0) K/uL Lymph # 0.4 L (1.0-4.3) K/uL [place] # 0.4 (0.0-0.8) K/uL Eos # 0.0 (0.0-0.7) K/uL Baso # 0.0 (0.0-0.2) K/uL Neutrophils % (Manual) 89 H (50-75) % Band Neutrophils % 1 (0-2) % Lymphocytes % (Manual) 4 L (20-40) % Monocytes % (Manual) 6 (0-10) % Platelet Estimate Decreased L (NORMAL) Polychromasia Slight Hypochromasia (manual) Slight Anisocytosis (manual) Slight Sodium 135 (132-148) mmol/L Potassium 3.9 (3.6-5.2) mmol/L Chloride 105 (98-107) mmol/L Carbon Dioxide 23 (22-30) mmol/L Anion Gap 11 (10-20) BUN 22 H (7-17) mg/dL Creatinine 1.1 (0.7-1.2) mg/dL Est GFR ( Amer) 59 Est GFR (Non-Af Amer) 49 POC Glucose (mg/dL) 109 (65-110) mg/dL Random Glucose 100 (65-105) mg/dL Hemoglobin A1c (4.2-6.5) % Calcium 7.3 L (8.6-10.4) mg/dl Phosphorus 2.5 (2.5-4.5) mg/dL Magnesium 2.1 (1.6-2.3) mg/dL Total Bilirubin 0.8 (0.2-1.3) mg/dL AST 46 H D (14-36) U/L ALT 43 (9-52) U/L Alkaline Phosphatase 57 (38-126) U/L Total Protein 5.9 L (6.3-8.3) g/dL Albumin 3.0 L (3.5-5.0) g/dL Globulin 2.9 (2.2-3.9) gm/dL Albumin/Globulin Ratio 1.0 (1.0-2.1) Random Vancomycin ug/mL 05/17/17 05/17/17 05/16/17 Range/Units 06:44 00:23 21:21 WBC (4.8-10.8) K/uL RBC (3.80-5.20) Mil/uL Hgb (11.0-16.0) g/dL Hct (34.0-47.0) % MCV (81.0-99.0) fL MCH (27.0-31.0) pg MCHC (33.0-37.0) g/dL RDW (11.5-14.5) % Plt Count (130-400) K/uL MPV (7.2-11.7) fL Neut % (Auto) (50.0-75.0) % Lymph % (Auto) (20.0-40.0) % [place] % (Auto) (0.0-10.0) % Eos % (Auto) (0.0-4.0) % Baso % (Auto) (0.0-2.0) % Neut # (1.8-7.0) K/uL Lymph # (1.0-4.3) K/uL [place] # (0.0-0.8) K/uL Eos # (0.0-0.7) K/uL Baso # (0.0-0.2) K/uL Neutrophils % (Manual) (50-75) % Band Neutrophils % (0-2) % Lymphocytes % (Manual) (20-40) % Monocytes % (Manual) (0-10) % Platelet Estimate (NORMAL) Polychromasia Hypochromasia (manual) Anisocytosis (manual) Sodium (132-148) mmol/L Potassium (3.6-5.2) mmol/L Chloride (98-107) mmol/L Carbon Dioxide (22-30) mmol/L Anion Gap (10-20) BUN (7-17) mg/dL Creatinine (0.7-1.2) mg/dL Est GFR ( Amer) Est GFR (Non-Af Amer) POC Glucose (mg/dL) 95 100 (65-110) mg/dL Random Glucose (65-105) mg/dL Hemoglobin A1c (4.2-6.5) % Calcium (8.6-10.4) mg/dl Phosphorus (2.5-4.5) mg/dL Magnesium (1.6-2.3) mg/dL Total Bilirubin (0.2-1.3) mg/dL AST (14-36) U/L ALT (9-52) U/L Alkaline Phosphatase (38-126) U/L Total Protein (6.3-8.3) g/dL Albumin (3.5-5.0) g/dL Globulin (2.2-3.9) gm/dL Albumin/Globulin Ratio (1.0-2.1) Random Vancomycin 19.23 ug/mL 05/15/17 Range/Units 07:13 WBC (4.8-10.8) K/uL RBC (3.80-5.20) Mil/uL Hgb (11.0-16.0) g/dL Hct (34.0-47.0) % MCV (81.0-99.0) fL MCH (27.0-31.0) pg MCHC (33.0-37.0) g/dL RDW (11.5-14.5) % Plt Count (130-400) K/uL MPV (7.2-11.7) fL Neut % (Auto) (50.0-75.0) % Lymph % (Auto) (20.0-40.0) % [place] % (Auto) (0.0-10.0) % Eos % (Auto) (0.0-4.0) % Baso % (Auto) (0.0-2.0) % Neut # (1.8-7.0) K/uL Lymph # (1.0-4.3) K/uL [place] # (0.0-0.8) K/uL Eos # (0.0-0.7) K/uL Baso # (0.0-0.2) K/uL Neutrophils % (Manual) (50-75) % Band Neutrophils % (0-2) % Lymphocytes % (Manual) (20-40) % Monocytes % (Manual) (0-10) % Platelet Estimate (NORMAL) Polychromasia Hypochromasia (manual) Anisocytosis (manual) Sodium (132-148) mmol/L Potassium (3.6-5.2) mmol/L Chloride (98-107) mmol/L Carbon Dioxide (22-30) mmol/L Anion Gap (10-20) BUN (7-17) mg/dL Creatinine (0.7-1.2) mg/dL Est GFR ( Amer) Est GFR (Non-Af Amer) POC Glucose (mg/dL) (65-110) mg/dL Random Glucose (65-105) mg/dL Hemoglobin A1c 6.0 (4.2-6.5) % Calcium (8.6-10.4) mg/dl Phosphorus (2.5-4.5) mg/dL Magnesium (1.6-2.3) mg/dL Total Bilirubin (0.2-1.3) mg/dL AST (14-36) U/L ALT (9-52) U/L Alkaline Phosphatase (38-126) U/L Total Protein (6.3-8.3) g/dL Albumin (3.5-5.0) g/dL Globulin (2.2-3.9) gm/dL Albumin/Globulin Ratio (1.0-2.1) Random Vancomycin ug/mL Laboratory Results - last 24 hr 05/15/17 05/16/17 05/17/17 07:13 21:21 00:23 WBC RBC Hgb Hct MCV MCH MCHC RDW Plt Count MPV Neut % (Auto) Lymph % (Auto) [place] % (Auto) Eos % (Auto) Baso % (Auto) Neut # Lymph # [place] # Eos # Baso # Neutrophils % (Manual) Band Neutrophils % Lymphocytes % (Manual) Monocytes % (Manual) Platelet Estimate Polychromasia Hypochromasia (manual) Anisocytosis (manual) Sodium Potassium Chloride Carbon Dioxide Anion Gap BUN Creatinine Est GFR ( Amer) Est GFR (Non-Af Amer) POC Glucose (mg/dL) 100 95 Random Glucose Hemoglobin A1c 6.0 Calcium Phosphorus Magnesium Total Bilirubin AST ALT Alkaline Phosphatase Total Protein Albumin Globulin Albumin/Globulin Ratio Random Vancomycin 05/17/17 05/17/17 05/17/17 06:44 06:44 06:44 WBC 5.0 RBC 3.38 L Hgb 9.0 L Hct 27.4 L MCV 81.0 MCH 26.7 L MCHC 32.9 L RDW 16.8 H Plt Count 93 L MPV 8.7 Neut % (Auto) 83.6 H Lymph % (Auto) 7.2 L [place] % (Auto) 8.0 Eos % (Auto) 0.8 Baso % (Auto) 0.4 Neut # 4.2 Lymph # 0.4 L [place] # 0.4 Eos # 0.0 Baso # 0.0 Neutrophils % (Manual) 89 H Band Neutrophils % 1 Lymphocytes % (Manual) 4 L Monocytes % (Manual) 6 Platelet Estimate Decreased L Polychromasia Slight Hypochromasia (manual) Slight Anisocytosis (manual) Slight Sodium 135 Potassium 3.9 Chloride 105 Carbon Dioxide 23 Anion Gap 11 BUN 22 H Creatinine 1.1 Est GFR ( Amer) 59 Est GFR (Non-Af Amer) 49 POC Glucose (mg/dL) Random Glucose 100 Hemoglobin A1c Calcium 7.3 L Phosphorus 2.5 Magnesium 2.1 Total Bilirubin 0.8 AST 46 H D ALT 43 Alkaline Phosphatase 57 Total Protein 5.9 L Albumin 3.0 L Globulin 2.9 Albumin/Globulin Ratio 1.0 Random Vancomycin 19.23 05/17/17 05/17/17 05/17/17 07:36 11:31 16:23 WBC RBC Hgb Hct MCV MCH MCHC RDW Plt Count MPV Neut % (Auto) Lymph % (Auto) [place] % (Auto) Eos % (Auto) Baso % (Auto) Neut # Lymph # [place] # Eos # Baso # Neutrophils % (Manual) Band Neutrophils % Lymphocytes % (Manual) Monocytes % (Manual) Platelet Estimate Polychromasia Hypochromasia (manual) Anisocytosis (manual) Sodium Potassium Chloride Carbon Dioxide Anion Gap BUN Creatinine Est GFR ( Amer) Est GFR (Non-Af Amer) POC Glucose (mg/dL) 109 113 H 106 Random Glucose Hemoglobin A1c Calcium Phosphorus Magnesium Total Bilirubin AST ALT Alkaline Phosphatase Total Protein Albumin Globulin Albumin/Globulin Ratio Random Vancomycin 05/17/17 21:15 WBC RBC Hgb Hct MCV MCH MCHC RDW Plt Count MPV Neut % (Auto) Lymph % (Auto) [place] % (Auto) Eos % (Auto) Baso % (Auto) Neut # Lymph # [place] # Eos # Baso # Neutrophils % (Manual) Band Neutrophils % Lymphocytes % (Manual) Monocytes % (Manual) Platelet Estimate Polychromasia Hypochromasia (manual) Anisocytosis (manual) Sodium Potassium Chloride Carbon Dioxide Anion Gap BUN Creatinine Est GFR ( Amer) Est GFR (Non-Af Amer) POC Glucose (mg/dL) 89 Random Glucose Hemoglobin A1c Calcium Phosphorus Magnesium Total Bilirubin AST ALT Alkaline Phosphatase Total Protein Albumin Globulin Albumin/Globulin Ratio Random Vancomycin Critical Care Progress Note - Nutrition Nutrition: Nutrition Category Date Time Status Consistent Carbohydrate [DIET] Diets 05/17/17 Breakfast Active <Pelon Cantu M - Last Filed: 05/18/17 14:25> CCU Subjective - Physician Review Events Since Last Encounter (Free Text): 05/18/17 13:57 I was able to get in touch with Patient daughter just now,~we reviewed the treatments rationale, risks/benefits, treatment plans and alternatives, she was given the opportunity to ask many questions which were answered to her satisfaction. At this point of care, I do not see any reason for transfer to [facility], and the daughter agrees Of her major concern was the discharge Rehab options, I connect her with the 5th floor bilingual social worker to coordinate when safe and patient clinically stable. Care was discussed with patient PMD, Dr Chavez CCU Objective - Vital Signs / Intake & Output Intake and Output (Last 8hrs): Intake & Output 05/17/17 05/18/17 05/18/17 22:59 06:59 14:59 Intake Total 280 Output Total 500 Balance -220 Weight 176 lb Intake: Intake, IV Amount 100 Right Upper arm 100 Oral 180 Output: Stool 500 - Medications Active Medications: Active Medications Generic Name Dose Route Start Last Admin Trade Name Freq PRN Reason Stop Dose Admin Acetaminophen 650 mg 05/18/17 09:05 Tylenol 325mg Tab PO Q6 PRN Pain, Mild (1-3) Aspirin 81 mg 05/16/17 10:00 05/17/17 11:23 Aspirin Chewable PO 81 mg DAILY [facility] Administration Famotidine 20 mg 05/17/17 10:00 05/17/17 11:24 Pepcid PO 20 mg DAILY [facility] Administration Heparin Sodium (Porcine) 5,000 units 05/17/17 09:45 05/18/17 06:34 Heparin SC Not Given Q8 [facility] Ciprofloxacin 100 mls @ 67 mls/hr 05/16/17 18:00 05/18/17 05:30 Cipro 200mg/100ml D5w IVPB 67 mls/hr Q12H [facility] Administration Vancomycin HCl 1 gm/ Sodium 200 mls @ 166.7 mls/hr 05/18/17 13:00 05/18/17 13 :45 Chloride IVPB 166.7 mls/hr Q24H [facility] Administration Insulin Human Regular 0 unit 05/16/17 11:30 05/18/17 07:55 Novolin R SC Not Given ACHS [facility] Protocol Lisinopril 40 mg 05/17/17 10:00 05/17/17 11:24 Zestril PO 40 mg DAILY [facility] Administration Oxycodone/Acetaminophen 1 tab 05/18/17 09:04 05/18/17 13:44 Percocet 5/325 Mg Tab PO 05/21/17 09:05 1 tab Q6H PRN Administration Pain, moderate (4-7) - Patient Studies Lab Studies: Microbiology Studies 05/15/17 07:20 Blood Culture - Preliminary Blood-Venous NO GROWTH AFTER 3 DAYS 05/15/17 06:50 Blood Culture - Preliminary Blood-Venous NO GROWTH AFTER 3 DAYS Lab Studies 05/18/17 05/18/17 05/18/17 Range/Units 11:40 07:20 06:12 WBC (4.8-10.8) K/uL RBC (3.80-5.20) Mil/uL Hgb (11.0-16.0) g/dL Hct (34.0-47.0) % MCV (81.0-99.0) fL MCH (27.0-31.0) pg MCHC (33.0-37.0) g/dL RDW (11.5-14.5) % Plt Count (130-400) K/uL MPV (7.2-11.7) fL Neut % (Auto) (50.0-75.0) % Lymph % (Auto) (20.0-40.0) % [place] % (Auto) (0.0-10.0) % Eos % (Auto) (0.0-4.0) % Baso % (Auto) (0.0-2.0) % Neut # (1.8-7.0) K/uL Lymph # (1.0-4.3) K/uL [place] # (0.0-0.8) K/uL Eos # (0.0-0.7) K/uL Baso # (0.0-0.2) K/uL Sodium 136 (132-148) mmol/L Potassium 3.6 (3.6-5.2) mmol/L Chloride 102 (98-107) mmol/L Carbon Dioxide 22 (22-30) mmol/L Anion Gap 15 (10-20) BUN 16 (7-17) mg/dL Creatinine 0.9 (0.7-1.2) mg/dL Est GFR ( Amer) > 60 Est GFR (Non-Af Amer) > 60 POC Glucose (mg/dL) 116 H 96 (65-110) mg/dL Random Glucose 91 (65-105) mg/dL Calcium 7.7 L (8.6-10.4) mg/dl Total Bilirubin 0.7 (0.2-1.3) mg/dL AST 32 (14-36) U/L ALT 34 (9-52) U/L Alkaline Phosphatase 56 (38-126) U/L Total Protein 6.1 L (6.3-8.3) g/dL Albumin 3.1 L (3.5-5.0) g/dL Globulin 3.0 (2.2-3.9) gm/dL Albumin/Globulin Ratio 1.0 (1.0-2.1) Random Vancomycin ug/mL 05/18/17 05/18/17 05/17/17 Range/Units 06:12 06:12 21:15 WBC 3.5 L (4.8-10.8) K/uL RBC 3.27 L (3.80-5.20) Mil/uL Hgb 8.6 L (11.0-16.0) g/dL Hct 26.6 L (34.0-47.0) % MCV 81.1 (81.0-99.0) fL MCH 26.4 L (27.0-31.0) pg MCHC 32.6 L (33.0-37.0) g/dL RDW 16.5 H (11.5-14.5) % Plt Count 97 L (130-400) K/uL MPV 8.9 (7.2-11.7) fL Neut % (Auto) 75.4 H (50.0-75.0) % Lymph % (Auto) 14.1 L (20.0-40.0) % [place] % (Auto) 9.1 (0.0-10.0) % Eos % (Auto) 1.0 (0.0-4.0) % Baso % (Auto) 0.4 (0.0-2.0) % Neut # 2.6 (1.8-7.0) K/uL Lymph # 0.5 L (1.0-4.3) K/uL [place] # 0.3 (0.0-0.8) K/uL Eos # 0.0 (0.0-0.7) K/uL Baso # 0.0 (0.0-0.2) K/uL Sodium (132-148) mmol/L Potassium (3.6-5.2) mmol/L Chloride (98-107) mmol/L Carbon Dioxide (22-30) mmol/L Anion Gap (10-20) BUN (7-17) mg/dL Creatinine (0.7-1.2) mg/dL Est GFR ( Amer) Est GFR (Non-Af Amer) POC Glucose (mg/dL) 89 (65-110) mg/dL Random Glucose (65-105) mg/dL Calcium (8.6-10.4) mg/dl Total Bilirubin (0.2-1.3) mg/dL AST (14-36) U/L ALT (9-52) U/L Alkaline Phosphatase (38-126) U/L Total Protein (6.3-8.3) g/dL Albumin (3.5-5.0) g/dL Globulin (2.2-3.9) gm/dL Albumin/Globulin Ratio (1.0-2.1) Random Vancomycin 9.93 ug/mL 05/17/17 Range/Units 16:23 WBC (4.8-10.8) K/uL RBC (3.80-5.20) Mil/uL Hgb (11.0-16.0) g/dL Hct (34.0-47.0) % MCV (81.0-99.0) fL MCH (27.0-31.0) pg MCHC (33.0-37.0) g/dL RDW (11.5-14.5) % Plt Count (130-400) K/uL MPV (7.2-11.7) fL Neut % (Auto) (50.0-75.0) % Lymph % (Auto) (20.0-40.0) % [place] % (Auto) (0.0-10.0) % Eos % (Auto) (0.0-4.0) % Baso % (Auto) (0.0-2.0) % Neut # (1.8-7.0) K/uL Lymph # (1.0-4.3) K/uL [place] # (0.0-0.8) K/uL Eos # (0.0-0.7) K/uL Baso # (0.0-0.2) K/uL Sodium (132-148) mmol/L Potassium (3.6-5.2) mmol/L Chloride (98-107) mmol/L Carbon Dioxide (22-30) mmol/L Anion Gap (10-20) BUN (7-17) mg/dL Creatinine (0.7-1.2) mg/dL Est GFR ( Amer) Est GFR (Non-Af Amer) POC Glucose (mg/dL) 106 (65-110) mg/dL Random Glucose (65-105) mg/dL Calcium (8.6-10.4) mg/dl Total Bilirubin (0.2-1.3) mg/dL AST (14-36) U/L ALT (9-52) U/L Alkaline Phosphatase (38-126) U/L Total Protein (6.3-8.3) g/dL Albumin (3.5-5.0) g/dL Globulin (2.2-3.9) gm/dL Albumin/Globulin Ratio (1.0-2.1) Random Vancomycin ug/mL Laboratory Results - last 24 hr 05/17/17 05/17/17 05/18/17 16:23 21:15 06:12 WBC RBC Hgb Hct MCV MCH MCHC RDW Plt Count MPV Neut % (Auto) Lymph % (Auto) [place] % (Auto) Eos % (Auto) Baso % (Auto) Neut # Lymph # [place] # Eos # Baso # Sodium Potassium Chloride Carbon Dioxide Anion Gap BUN Creatinine Est GFR ( Amer) Est GFR (Non-Af Amer) POC Glucose (mg/dL) 106 89 Random Glucose Calcium Total Bilirubin AST ALT Alkaline Phosphatase Total Protein Albumin Globulin Albumin/Globulin Ratio Random Vancomycin 9.93 05/18/17 05/18/17 05/18/17 06:12 06:12 07:20 WBC 3.5 L RBC 3.27 L Hgb 8.6 L Hct 26.6 L MCV 81.1 MCH 26.4 L MCHC 32.6 L RDW 16.5 H Plt Count 97 L MPV 8.9 Neut % (Auto) 75.4 H Lymph % (Auto) 14.1 L [place] % (Auto) 9.1 Eos % (Auto) 1.0 Baso % (Auto) 0.4 Neut # 2.6 Lymph # 0.5 L [place] # 0.3 Eos # 0.0 Baso # 0.0 Sodium 136 Potassium 3.6 Chloride 102 Carbon Dioxide 22 Anion Gap 15 BUN 16 Creatinine 0.9 Est GFR ( Amer) > 60 Est GFR (Non-Af Amer) > 60 POC Glucose (mg/dL) 96 Random Glucose 91 Calcium 7.7 L Total Bilirubin 0.7 AST 32 ALT 34 Alkaline Phosphatase 56 Total Protein 6.1 L Albumin 3.1 L Globulin 3.0 Albumin/Globulin Ratio 1.0 Random Vancomycin 05/18/17 11:40 WBC RBC Hgb Hct MCV MCH MCHC RDW Plt Count MPV Neut % (Auto) Lymph % (Auto) [place] % (Auto) Eos % (Auto) Baso % (Auto) Neut # Lymph # [place] # Eos # Baso # Sodium Potassium Chloride Carbon Dioxide Anion Gap BUN Creatinine Est GFR ( Amer) Est GFR (Non-Af Amer) POC Glucose (mg/dL) 116 H Random Glucose Calcium Total Bilirubin AST ALT Alkaline Phosphatase Total Protein Albumin Globulin Albumin/Globulin Ratio Random Vancomycin Critical Care Progress Note - Nutrition Nutrition: Nutrition Category Date Time Status Consistent Carbohydrate [DIET] Diets 05/17/17 Breakfast Active
--- NOTE | 2017-05-17 19:15 | RAD ---
HISTORY: PICC line insertion COMPARISON: Chest xray performed 05/15/17 TECHNIQUE: Chest, one view. FINDINGS: Right-sided PICC and right IJ approach central venous catheter extends to the SVC. LUNGS: No focal consolidation. Please note that chest x-ray has limited sensitivity for the detection of pulmonary masses. PLEURA: No significant pleural effusion identified. No definite pneumothorax . CARDIOVASCULAR: Heart size appears within normal limits. OSSEOUS STRUCTURES: Partially imaged lumbar hardware. VISUALIZED UPPER ABDOMEN: Unremarkable. OTHER FINDINGS: None. IMPRESSION: Right-sided PICC and right IJ approach central venous catheter extend to the SVC.
--- NOTE | 2017-05-17 19:44 | CP.PCM.PN ---
Subjective - Date & Time of Evaluation Date of Evaluation: 05/17/17 Time of Evaluation: 19:35 - Subjective Subjective: patient denies chest pain. more awake Objective - Vital Signs/Intake and Output Vital Signs (last 24 hours): Temp Pulse Resp BP Pulse Ox 98.7 F 78 15 140/53 L 97 05/17/17 16:00 05/17/17 16:00 05/17/17 16:00 05/17/17 14:31 05/17/17 15:00 Intake and Output: 05/17/17 05/18/17 18:59 06:59 Intake Total 420 220 Output Total 195 500 Balance 225 -280 - Medications Medications: Current Medications Aspirin (Aspirin Chewable) 81 mg PO DAILY [facility] Last Admin: 05/17/17 11:23 Dose: 81 mg Famotidine (Pepcid) 20 mg PO DAILY [facility] Last Admin: 05/17/17 11:24 Dose: 20 mg Heparin Sodium (Porcine) (Heparin) 5,000 units SC Q8 [facility] Last Admin: 05/17/17 18:04 Dose: 5,000 units Ciprofloxacin (Cipro 200mg/100ml D5w) 100 mls @ 67 mls/hr IVPB Q12H [facility] Last Admin: 05/17/17 18:05 Dose: 67 mls/hr Insulin Human Regular (Novolin R) 0 unit SC ACHS [facility] PRN Reason: Protocol Last Admin: 05/17/17 18:11 Dose: Not Given Lisinopril (Zestril) 40 mg PO DAILY [facility] Last Admin: 05/17/17 11:24 Dose: 40 mg - Labs Labs: 05/17/17 06:44 05/17/17 06:44 PT 12.7 SECONDS (9.7-12.2) H 05/15/17 07:13 INR 1.1 05/15/17 07:13 APTT 59 SECONDS (21-34) H D 05/16/17 04:57 - Constitutional Appears: Non-toxic - Head Exam Head Exam: NORMAL INSPECTION - Eye Exam Eye Exam: Normal appearance - ENT Exam ENT Exam: Mucous Membranes Moist - Neck Exam Neck Exam: Full ROM - Respiratory Exam Respiratory Exam: Decreased Breath Sounds - Cardiovascular Exam Cardiovascular Exam: REGULAR RHYTHM - GI/Abdominal Exam GI & Abdominal Exam: Normal Bowel Sounds - Rectal Exam Rectal Exam: Deferred - Extremities Exam Extremities Exam: absent: Pedal Edema - Back Exam Back Exam: NORMAL INSPECTION - Neurological Exam Neurological Exam: Alert - Psychiatric Exam Psychiatric exam: Normal Affect - Skin Skin Exam: Normal Color Assessment and Plan (1) NSTEMI (non-ST elevated myocardial infarction) Assessment & Plan: likely due to serotonin syndrome. Left ventricular function is normal There is calcification of the mitral valve and annulus but the valve is functioning. medical therapy. follow up cultures Status: Acute (2) Hypertension Status: Chronic
--- NOTE | 2017-05-17 22:18 | CP.PCM.PN ---
Objective - Vital Signs/Intake and Output Vital Signs (last 24 hours): Temp Pulse Resp BP Pulse Ox 98.7 F 79 26 H 157/79 H 81 L 05/17/17 16:00 05/17/17 20:00 05/17/17 20:00 05/17/17 17:16 05/17/17 18:00 Intake and Output: 05/17/17 05/18/17 18:59 06:59 Intake Total 420 220 Output Total 195 500 Balance 225 -280 - Medications Medications: Current Medications Aspirin (Aspirin Chewable) 81 mg PO DAILY [facility] Last Admin: 05/17/17 11:23 Dose: 81 mg Famotidine (Pepcid) 20 mg PO DAILY [facility] Last Admin: 05/17/17 11:24 Dose: 20 mg Heparin Sodium (Porcine) (Heparin) 5,000 units SC Q8 [facility] Last Admin: 05/17/17 22:10 Dose: 5,000 units Ciprofloxacin (Cipro 200mg/100ml D5w) 100 mls @ 67 mls/hr IVPB Q12H [facility] Last Admin: 05/17/17 18:05 Dose: 67 mls/hr Insulin Human Regular (Novolin R) 0 unit SC ACHS [facility] PRN Reason: Protocol Last Admin: 05/17/17 22:04 Dose: Not Given Lisinopril (Zestril) 40 mg PO DAILY [facility] Last Admin: 05/17/17 11:24 Dose: 40 mg - Labs Labs: 05/17/17 06:44 05/17/17 06:44 PT 12.7 SECONDS (9.7-12.2) H 05/15/17 07:13 INR 1.1 05/15/17 07:13 APTT 59 SECONDS (21-34) H D 05/16/17 04:57 Assessment and Plan - Assessment and Plan (Free Text) Assessment: spoke to Patients daughter Ms Mary Krishna as requested patients diagnoses and condition discussed patient had been downgraded to regular floor family requesting transfer to [facility] for care by her PMD. Dr Cantu aware and will make make necessary arrangements tomorrow
[2017-05-18] MEDS: Ciprofloxacin 200mg/100ml D5W 100 ML IVPB SCH ×2 (05:30→18:57)
[2017-05-18 06:20] LABS: BASO % 0.4 % (0.0-2.0); HEMOGLOBIN 8.6 g/dL (11.0-16.0); LYMPH # 0.5 K/uL (1.0-4.3); LYMPH % 14.1 % (20.0-40.0); MEAN CELL VOLUME 81.1 fL (81.0-99.0); MEAN CORPUSCULAR HEMOGLOBIN 26.4 pg (27.0-31.0); MEAN CORPUSCULAR HGB CONC 32.6 g/dL (33.0-37.0); MEAN PLATELET VOLUME 8.9 fL (7.2-11.7); MONO # 0.3 K/uL (0.0-0.8); MONO % 9.1 % (0.0-10.0); NEUT # 2.6 K/uL (1.8-7.0); NEUT % 75.4 % (50.0-75.0); NRBC % 0.2 % (0.0-2.0); RBC 3.27 Mil/uL (3.80-5.20); RED CELL DISTRIBUTION WIDTH 16.5 % (11.5-14.5); WHITE BLOOD COUNT 3.5 K/uL (4.8-10.8)
[2017-05-18 06:47] LABS: ALBUMIN 3.1 g/dL (3.5-5.0); ALT/SGPT 34 U/L (9-52); AST/SGOT 32 U/L (14-36); BLOOD UREA NITROGEN 16 mg/dL (7-17); CALCIUM 7.7 mg/dl (8.6-10.4); GFR AFRICAN-AMERICAN > 60; GFR NON-AFRICAN AMERICAN > 60
[2017-05-18] MEDS: (Novolin R) Insulin Human Regular 100 units/ml vial SC SCH ×2 (07:55→17:24)
--- NOTE | 2017-05-18 08:35 | CARD ---
APPROVED REPORT EXAM: Two-dimensional and M-mode echocardiogram with Doppler and color Doppler. Other Information Quality : GoodRhythm : INDICATION CVA/TIA Non STEMI POSITIVE TROPONINS RISK FACTORS Hypertension Diabetes 2D DIMENSIONS IVSd1.2 (0.7-1.1cm)LVDd4.6 (3.9-5.9cm) PWd1.1 (0.7-1.1cm)LVDs2.7 (2.5-4.0cm) FS (%) 40.4 %LVEF (%)71.2 (>50%) M-Mode DIMENSIONS Left Atrium (MM)3.81 (2.5-4.0cm)Aortic Root2.90 (2.2-3.7cm) Aortic Cusp Exc.2.08 (1.5-2.0cm) Mitral Valve MV E [id number]/sMV A Arqiqrcp633.8cm/sE/A ratio0.7 TDI E/Lateral E'0.0E/Medial E'0.0 Tricuspid Valve TR Peak [id number]/sTR Peak [id number] LEFT VENTRICLE The left ventricle is normal size. There is normal left ventricular wall thickness. Left ventricle systolic function is normal. The Ejection Fraction is >70%. There is no regional wall motion abnormalities noted. The left ventricular diastolic function is abnormal. Transmitral Doppler flow pattern is Grade I-abnormal relaxation pattern. No left ventricle thrombus noted on this study. RIGHT VENTRICLE The right ventricle is normal size. The right ventricular systolic function is normal. ATRIA The left atrium size is normal. The right atrium size is normal. AORTIC VALVE The aortic valve is mildly sclerotic. The aortic valve is trileaflet. No aortic regurgitation is present. There is no aortic valvular stenosis. There is no aortic valvular vegetation. MITRAL VALVE Mitral annular calcification is moderate. There is no evidence of mitral valve prolapse. There is no mitral valve stenosis. There is no mitral valve regurgitation noted. TRICUSPID VALVE The tricuspid valve is normal in structure. There is trace to mild tricuspid regurgitation. Right ventricular systolic pressure is estimated at 30-40 mmHg. There is no pulmonary hypertension. There is no tricuspid valve prolapse or vegetation. There is no tricuspid valve stenosis. PULMONIC VALVE The pulmonic valve is not well visualized. There is no pulmonic valvular regurgitation. GREAT VESSELS The aortic root is normal in size. The IVC is normal in size and collapses >50% with inspiration. PERICARDIAL EFFUSION There is no pericardial effusion. There is no pleural effusion. <Conclusion> The left ventricle is normal size. Left ventricle systolic function is normal. The Ejection Fraction is >70%. The left ventricular diastolic function is abnormal. There is no regional wall motion abnormalities noted. The right ventricle is normal size. The right ventricular systolic function is normal. The left atrium size is normal. The right atrium size is normal. There is trace to mild tricuspid regurgitation.
--- NOTE | 2017-05-18 09:56 | CP.PCM.PN ---
Subjective - Date & Time of Evaluation Date of Evaluation: 05/18/17 Time of Evaluation: 09:56 - Subjective Subjective: PGY2 medicine progress note for Dr. Barksdale Patient seen and examined. Patient complaining of mild pain in left wrist. Prior to this admission patient fell and fractured the wrist. Patient states she is not eating well because the food is too bland. Objective - Vital Signs/Intake and Output Vital Signs (last 24 hours): Temp Pulse Resp BP Pulse Ox 97.9 F 75 20 163/71 H 98 05/18/17 08:30 05/18/17 08:30 05/18/17 08:30 05/18/17 08:30 05/18/17 08:30 Intake and Output: 05/18/17 05/18/17 06:59 18:59 Intake Total 220 Output Total 500 Balance -280 - Medications Medications: Current Medications Acetaminophen (Tylenol 325mg Tab) 650 mg PO Q6 PRN PRN Reason: Pain, Mild (1-3) Aspirin (Aspirin Chewable) 81 mg PO DAILY [facility] Last Admin: 05/17/17 11:23 Dose: 81 mg Famotidine (Pepcid) 20 mg PO DAILY [facility] Last Admin: 05/17/17 11:24 Dose: 20 mg Heparin Sodium (Porcine) (Heparin) 5,000 units SC Q8 [facility] Last Admin: 05/18/17 06:34 Dose: Not Given Ciprofloxacin (Cipro 200mg/100ml D5w) 100 mls @ 67 mls/hr IVPB Q12H [facility] Last Admin: 05/18/17 05:30 Dose: 67 mls/hr Insulin Human Regular (Novolin R) 0 unit SC ACHS [facility] PRN Reason: Protocol Last Admin: 05/18/17 07:55 Dose: Not Given Lisinopril (Zestril) 40 mg PO DAILY [facility] Last Admin: 05/17/17 11:24 Dose: 40 mg Oxycodone/Acetaminophen (Percocet 5/325 Mg Tab) 1 tab PO Q6H PRN PRN Reason: Pain, moderate (4-7) Stop: 05/21/17 09:05 - Labs Labs: 05/18/17 06:12 05/18/17 06:12 PT 12.7 SECONDS (9.7-12.2) H 05/15/17 07:13 INR 1.1 05/15/17 07:13 APTT 59 SECONDS (21-34) H D 05/16/17 04:57 - Constitutional Appears: No Acute Distress, Chronically Ill - Head Exam Head Exam: ATRAUMATIC - Eye Exam Eye Exam: EOMI - ENT Exam ENT Exam: Mucous Membranes Moist - Respiratory Exam Respiratory Exam: Clear to Ausculation Bilateral - Cardiovascular Exam Cardiovascular Exam: +S1, +S2 - GI/Abdominal Exam GI & Abdominal Exam: Soft Additional comments: colostomy pink, soft stool - Extremities Exam Additional comments: right arm PICC line with multiple ecchymoses noted left arm in splint - Neurological Exam Neurological Exam: Alert, Awake - Skin Skin Exam: Warm Assessment and Plan - Assessment and Plan (Free Text) Assessment: Serotonin syndrome presented on admission with altered mental status Patient was sent from [facility] for altered mental status. Per ED note, patient had temperature of 107.1 on arrival and was given Tylenol suppository which brought temperature down Patient was on several SSRi/ SNRi outpt: zoloft, cymbalta, wellbutrin requesting psychiatric evaluation for medical management of depression CT Head w/out contrast: moderate atrophy, no evidence of acute intracranial hemorrhage, mass effect or midline shift. HTN Lisinopril 40 mg PO daily [facility] NSTEMI elevated troponin present on admission patient was on heparin drip, now on heparin SC 5000u q8h Dr. Watson consulted- help appreciated LV function normal, continue medical therapy Echo: LVEF greater than 70%, LV diastolic function is abnormal. no regional wall motion abnormalities. RV normal size. RV systolic function normal. LA normal size. Trace to mild tricuspid regurgitation (see full report) Wide complex tachycardia present on admission, currently resolved patient was initially on amiodarone drip in ICU, discontinued on 05/16/17 GEMA present on admission, patient was on sodium bicarb drip with langston catheter currently resolved continue to monitor renal function Left wrist fracture B/L wrist xray 05/17/17: Left distracted intra-articular fracture of distal radius from 04/25/17 fall Right wrist shows chronic degenerative diseases Venous duplex study showed evidence phlebitis of the right basilic vein, no evidence of DVT continue tylenol and percocet as needed Leukocytosis present on admission with WBC 15.8 currently WBC 3.5 procalcitonin 63.34 on 05/16/17 TLC removed 05/17/17, PICC inserted right arm 05/17/17 patient has stage 4 sacral decubitus ulcer Venous duplex study showed evidence phlebitis of the right basilic vein, no evidence of DVT blood cultures negative, urine cultures negative Dr. Israel, [place], consulted- help appreciated continue cipro q12h Diabetes continue ISS diabetic diet A1c 6.0 on 05/15/17 Anemia last ferritin 421 in 07/2016 protein electrophoresis in past showed decreased albumin suggestive of malnutrition Prophylaxis heparin sc q8h pepcid 20mg PO daily turn q2h wound care prevlon boots All medical management as per Dr. Barksdale Disposition: Family was requesting transfer to [place] as patient's PMD rounds there
--- NOTE | 2017-05-18 11:19 | CP.PCM.PN ---
Subjective - Date & Time of Evaluation Date of Evaluation: 05/18/17 Time of Evaluation: 07:00 - Subjective Subjective: awake alert OOB cultures neg procalcitonin hi await wound care eval cont empiric rx for min 7 days Objective - Vital Signs/Intake and Output Vital Signs (last 24 hours): Temp Pulse Resp BP Pulse Ox 97.9 F 75 20 163/71 H 98 05/18/17 08:30 05/18/17 08:30 05/18/17 08:30 05/18/17 08:30 05/18/17 08:30 Intake and Output: 05/18/17 05/18/17 06:59 18:59 Intake Total 220 Output Total 500 Balance -280 - Medications Medications: Current Medications Acetaminophen (Tylenol 325mg Tab) 650 mg PO Q6 PRN PRN Reason: Pain, Mild (1-3) Aspirin (Aspirin Chewable) 81 mg PO DAILY [facility] Last Admin: 05/17/17 11:23 Dose: 81 mg Famotidine (Pepcid) 20 mg PO DAILY [facility] Last Admin: 05/17/17 11:24 Dose: 20 mg Heparin Sodium (Porcine) (Heparin) 5,000 units SC Q8 [facility] Last Admin: 05/18/17 06:34 Dose: Not Given Ciprofloxacin (Cipro 200mg/100ml D5w) 100 mls @ 67 mls/hr IVPB Q12H [facility] Last Admin: 05/18/17 05:30 Dose: 67 mls/hr Insulin Human Regular (Novolin R) 0 unit SC ACHS [facility] PRN Reason: Protocol Last Admin: 05/18/17 07:55 Dose: Not Given Lisinopril (Zestril) 40 mg PO DAILY [facility] Last Admin: 05/17/17 11:24 Dose: 40 mg Oxycodone/Acetaminophen (Percocet 5/325 Mg Tab) 1 tab PO Q6H PRN PRN Reason: Pain, moderate (4-7) Stop: 05/21/17 09:05 - Labs Labs: 05/18/17 06:12 05/18/17 06:12 PT 12.7 SECONDS (9.7-12.2) H 05/15/17 07:13 INR 1.1 05/15/17 07:13 APTT 59 SECONDS (21-34) H D 05/16/17 04:57 - Constitutional Appears: Non-toxic, Chronically Ill - Head Exam Head Exam: NORMOCEPHALIC - Eye Exam Eye Exam: absent: Scleral icterus - ENT Exam ENT Exam: Mucous Membranes Dry - Neck Exam Neck Exam: absent: Lymphadenopathy - Respiratory Exam Respiratory Exam: Decreased Breath Sounds - Cardiovascular Exam Cardiovascular Exam: REGULAR RHYTHM - GI/Abdominal Exam GI & Abdominal Exam: Distended - Rectal Exam Rectal Exam: Deferred Assessment and Plan (1) Altered mental status Status: Acute (2) Hyperthermia Status: Acute (3) NSTEMI (non-ST elevated myocardial infarction) Status: Acute (4) Closed fracture of left distal radius Status: Acute (5) Displaced fracture of left ulna styloid process, initial encounter for closed fracture Status: Acute (6) Fracture of distal fibula Status: Acute (7) Fracture of wrist Status: Acute (8) Leg swelling Status: Acute (9) Lumbar vertebral fracture Status: Acute (10) Small bowel obstruction Status: Acute (11) Ulcer of right heel Status: Acute (12) Depression Status: Chronic (13) Diabetes Status: Chronic (14) Hyperlipidemia Status: Chronic (15) Sacral decubitus ulcer, stage IV Status: Chronic
[2017-05-18] MEDS: Oxycodone/Acetaminophen 5/325 mg Tab PO PRN ×2 (13:44→21:22)
[2017-05-18] MEDS: Vancomycin 1 GM in Sodium Chloride 0.9% 200 ML IVPB SCH (13:45)
[2017-05-19] MEDS: (Novolin R) Insulin Human Regular 100 units/ml vial SC SCH ×3 (00:06→11:30)
[2017-05-19] MEDS ORDERED: Tramadol 25 mg PO ONE (00:13)
[2017-05-19] MEDS ORDERED: Tramadol 25 mg ONE (00:41)
[2017-05-19] MEDS: Ciprofloxacin 200mg/100ml D5W 100 ML IVPB SCH (05:50)
[2017-05-19 07:09] LABS: BASO % 0.8 % (0.0-2.0); EOS % 1.4 % (0.0-4.0); HEMOGLOBIN 9.3 g/dL (11.0-16.0); LYMPH # 0.6 K/uL (1.0-4.3); LYMPH % 17.3 % (20.0-40.0); MEAN CELL VOLUME 81.3 fL (81.0-99.0); MEAN CORPUSCULAR HEMOGLOBIN 26.7 pg (27.0-31.0); MEAN CORPUSCULAR HGB CONC 32.8 g/dL (33.0-37.0); MEAN PLATELET VOLUME 8.9 fL (7.2-11.7); MONO # 0.3 K/uL (0.0-0.8); MONO % 8.7 % (0.0-10.0); NEUT # 2.4 K/uL (1.8-7.0); NEUT % 71.8 % (50.0-75.0); RBC 3.47 Mil/uL (3.80-5.20); RED CELL DISTRIBUTION WIDTH 16.9 % (11.5-14.5); WHITE BLOOD COUNT 3.4 K/uL (4.8-10.8)
[2017-05-19 07:39] LABS: ALBUMIN 3.2 g/dL (3.5-5.0); ALT/SGPT 30 U/L (9-52); AST/SGOT 26 U/L (14-36); BLOOD UREA NITROGEN 15 mg/dL (7-17); CALCIUM 8.2 mg/dl (8.6-10.4); GFR AFRICAN-AMERICAN > 60; GFR NON-AFRICAN AMERICAN > 60
[2017-05-19 07:42] LABS: ALB/GLOB RATIO 1.1 (1.0-2.1)
--- NOTE | 2017-05-19 08:16 | CP.PCM.PN ---
Subjective - Date & Time of Evaluation Date of Evaluation: 05/19/17 Time of Evaluation: 10:23 - Subjective Subjective: PGY 2 Medicine Note- Dr. Barksdale's service Patient seen and evaluated in no apparent acute distress. Judy cute events overnight per nursing. Patient expressed wanting to be transferred to [facility] where her primary doctor can see her. Patient has left wrist pain and right ankle pain as well as back pain after a fall a few weeks prior. Patient denies headaches, chest pain, palpitations, nausea, vomiting or diarrhea at this time. Objective - Vital Signs/Intake and Output Vital Signs (last 24 hours): Temp Pulse Resp BP Pulse Ox 98 F 71 18 158/77 H 97 05/19/17 00:00 05/19/17 00:00 05/19/17 00:00 05/19/17 00:00 05/19/17 00:00 Intake and Output: 05/19/17 05/19/17 06:59 18:59 Intake Total 500 Output Total 300 Balance 200 - Medications Medications: Current Medications Acetaminophen (Tylenol 325mg Tab) 650 mg PO Q6 PRN PRN Reason: Pain, Mild (1-3) Aspirin (Aspirin Chewable) 81 mg PO DAILY [facility] Last Admin: 05/18/17 14:41 Dose: 81 mg Famotidine (Pepcid) 20 mg PO DAILY [facility] Last Admin: 05/18/17 14:41 Dose: 20 mg Heparin Sodium (Porcine) (Heparin) 5,000 units SC Q8 [facility] Last Admin: 05/19/17 05:21 Dose: Not Given Ciprofloxacin (Cipro 200mg/100ml D5w) 100 mls @ 67 mls/hr IVPB Q12H [facility] Last Admin: 05/19/17 05:50 Dose: 67 mls/hr Vancomycin HCl 1 gm/ Sodium (Chloride) 200 mls @ 166.7 mls/hr IVPB Q24H [facility] Last Admin: 05/18/17 13:45 Dose: 166.7 mls/hr Insulin Human Regular (Novolin R) 0 unit SC ACHS [facility] PRN Reason: Protocol Last Admin: 05/19/17 00:06 Dose: Not Given Lisinopril (Zestril) 40 mg PO DAILY [facility] Last Admin: 05/18/17 14:41 Dose: 40 mg Oxycodone/Acetaminophen (Percocet 5/325 Mg Tab) 1 tab PO Q6H PRN PRN Reason: Pain, moderate (4-7) Stop: 05/21/17 09:05 Last Admin: 05/18/17 21:22 Dose: 1 tab - Labs Labs: 05/19/17 07:02 05/19/17 07:02 PT 12.7 SECONDS (9.7-12.2) H 05/15/17 07:13 INR 1.1 05/15/17 07:13 APTT 59 SECONDS (21-34) H D 05/16/17 04:57 - Constitutional Appears: Non-toxic, No Acute Distress - Head Exam Head Exam: ATRAUMATIC, NORMAL INSPECTION, NORMOCEPHALIC - Eye Exam Eye Exam: EOMI, Normal appearance - ENT Exam ENT Exam: Mucous Membranes Moist - Respiratory Exam Respiratory Exam: NORMAL BREATHING PATTERN. absent: Wheezes - Cardiovascular Exam Cardiovascular Exam: +S1, +S2 - GI/Abdominal Exam GI & Abdominal Exam: Soft, Normal Bowel Sounds - Extremities Exam Extremities Exam: Normal Capillary Refill. absent: Full ROM Additional comments: limited range of motion of left wrist and right lower ankle. - Back Exam Back Exam: absent: Full ROM - Neurological Exam Neurological Exam: Alert, Awake, Oriented x3 - Psychiatric Exam Psychiatric exam: Normal Affect, Normal Mood - Skin Skin Exam: Dry, Intact, Normal Color, Warm Assessment and Plan - Assessment and Plan (Free Text) Assessment: Serotonin syndrome presented on admission with altered mental status Patient was sent from [facility] for altered mental status. Per ED note, patient had temperature of 107.1 on arrival and was given Tylenol suppository which brought temperature down Patient was on several SSRI/ SNRI outpt: zoloft, cymbalta, wellbutrin- Have all been held Psychiatric evaluation- Recommendations to hold psych medications. Upon transfer to new facility, patient to be reassesed and then medications can be restarted if need be. CT Head w/out contrast: moderate atrophy, no evidence of acute intracranial hemorrhage, mass effect or midline shift. HTN Lisinopril 40 mg PO daily [facility] Cont to monitor NSTEMI elevated troponin present on admission patient was on heparin drip, now on heparin SC 5000u q8h Dr. Watson consulted- help appreciated LV function normal, continue medical therapy Echo: LVEF greater than 70%, LV diastolic function is abnormal. no regional wall motion abnormalities. RV normal size. RV systolic function normal. LA normal size. Trace to mild tricuspid regurgitation (see full report) Wide complex tachycardia Present on admission, currently resolved patient was initially on amiodarone drip in ICU, discontinued on 05/16/17 GEMA present on admission, patient was on sodium bicarb drip with langston catheter currently resolved continue to monitor renal function Left wrist fracture B/L wrist xray 05/17/17: Left distracted intra-articular fracture of distal radius from 04/25/17 fall Right wrist shows chronic degenerative diseases Venous duplex study showed evidence phlebitis of the right basilic vein, no evidence of DVT Continue tylenol and percocet as needed Stage 4 sacral decubitus ulcer Continue wound care management Turn Q 2H Leukocytosis on admission Resolved Venous duplex study showed evidence phlebitis of the right basilic vein, no evidence of DVT blood cultures negative, urine cultures negative Dr. Israel, [place], consulted- help appreciated Continue cipro q12h Diabetes continue ISS diabetic diet A1c 6.0 on 05/15/17 Anemia last ferritin 421 in 07/2016 protein electrophoresis in past showed decreased albumin suggestive of malnutrition Prophylaxis heparin sc q8h pepcid 20mg PO daily turn q2h wound care prevlon boots DC Plan Patient is medically stable [facility] Patient to follow up with [employer] [facility] Dr. Watson upon discharge from TCU. Patient to continue medications. Patient will continue Vancomycin for five more days. Patient will complete last dose on May 24. Patient's psychiatric medications are held at this time. Patient will need to be re-evaluated by a psychiatrist at the TCU whereupon the necessary medications can be restarted slowly if need be. If symptoms return, go to the emergency room. Instructions explained to patient who is aware. Discussed with attending. All medical management as per Dr. Barksdale
[2017-05-19 08:45] VITALS: RESP 20
[2017-05-19] MEDS: Oxycodone/Acetaminophen 5/325 mg Tab PO PRN (11:03)
[2017-05-19] MEDS: Vancomycin 1 GM in Sodium Chloride 0.9% 200 ML IVPB SCH (13:57)
[2017-05-19] MEDS ORDERED: Potassium Chloride 20 mEq/15 ml LIQ UD PO ONE (14:15)
--- NOTE | 2017-05-19 14:51 | PCM.PSYCH ---
Initial Psychiatric Evaluation - Initial Psychiatric Evaluation Type of Admission: Voluntary History of Present Illness and Precipitating Events: Consultation ordered by Medicine team for Serotonin Syndrome Patient is a 71 year old female with a past medical history of hypertension, hypercholesterolemia, multiple fractures, DM, TIA, depression, and anxiety, who presented to the hospital with suspected serotonin syndrome. As per EMR, patient presented with AMS, rigidity, tremors, and hyperthermia, fever of 107F. Patient does not remember what happened and only remembers waking up in the ICU. Patient states she has been taking multiple (3-4) different anti- depressants, "some of them are new for about a month". She says shes been taking zoloft for years, but unsure of the names of the other medications she takes. Patient is requesting to take her antidepressants and otherwise only complains pain from her recent fracture. PMHx: hypertension, hypercholesterolemia, multiple fractures, DM, TIA, depression, and anxiety FamHx: aunt-depression; denies substance use SocHx: denies alcohol, drug, and tobacco use; lives alone in [place]; unemployed Current Medications: Active Medications Generic Name Dose Route Start Last Admin Trade Name Freq PRN Reason Stop Dose Admin Acetaminophen 650 mg 05/18/17 09:05 Tylenol 325mg Tab PO Q6 PRN Pain, Mild (1-3) Aspirin 81 mg 05/16/17 10:00 05/19/17 10:52 Aspirin Chewable PO 81 mg DAILY [facility] Administration Famotidine 20 mg 05/17/17 10:00 05/19/17 10:52 Pepcid PO 20 mg DAILY [facility] Administration Heparin Sodium (Porcine) 5,000 units 05/17/17 09:45 05/19/17 14:01 Heparin SC 5,000 units Q8 [facility] Administration Ciprofloxacin 100 mls @ 67 mls/hr 05/16/17 18:00 05/19/17 05:50 Cipro 200mg/100ml D5w IVPB 67 mls/hr Q12H [facility] Administration Vancomycin HCl 1 gm/ Sodium 200 mls @ 166.7 mls/hr 05/18/17 13:00 05/19/17 13 :57 Chloride IVPB 166.7 mls/hr Q24H [facility] Administration Insulin Human Regular 0 unit 05/16/17 11:30 05/19/17 11:30 Novolin R SC Not Given ACHS [facility] Protocol Lisinopril 40 mg 05/17/17 10:00 05/19/17 10:52 Zestril PO 40 mg DAILY [facility] Administration Oxycodone/Acetaminophen 1 tab 05/18/17 09:04 05/19/17 11:03 Percocet 5/325 Mg Tab PO 05/21/17 09:05 1 tab Q6H PRN Administration Pain, moderate (4-7) Potassium Chloride 20 meq 05/19/17 14:15 Potassium Chloride Oral Soln PO 05/19/17 14:16 ONCE ONE Past Psychiatric History - Past Psychiatric History Pertinent Medical Hx (Current Medical&Sleep Prob, Allergies): Allergies Allergy/AdvReac Type Severity Reaction Status Date / Time iodine Allergy RASH Verified 05/15/17 07:10 Sulfa (Sulfonamide Allergy RASH Verified 05/15/17 07:10 Antibiotics) Aspirin [Aspirin Chewable] 81 mg PO DAILY 06/28/16 Atorvastatin [Lipitor] 40 mg PO HS 06/28/16 Calcitonin ([place]) [Miacalcin] 1 spray ZO DAILY 06/28/16 DULoxetine [Cymbalta] 60 mg PO DAILY 06/28/16 Ergocalciferol [Drisdol 50,000 Intl Units Cap] 1 cap PO QWK 06/28/16 Montelukast [Singulair] 10 mg PO HS 06/28/16 Pantoprazole Sodium [Protonix] 40 mg PO DAILY 06/28/16 Sertraline [Zoloft] 150 mg PO DAILY 06/28/16 Morphine [Morphine Extended Release Tab] 30 mg PO Q12 #30 tabsr 07/09/16 Zolpidem [Ambien] 5 mg PO HS #10 tab 07/09/16 Acetaminophen/Oxycodone Hydr [Percocet 10/325 mg Tab] 1 tab PO Q12 PRN 05/07/17 Alendronate Sodium [Binosto] 70 mg PO QWK 05/07/17 Duloxetine HCl 60 mg PO DAILY 05/07/17 Nystatin [Nyamyc] 100,000 unit TOP DAILY 05/07/17 Acetaminophen [Tylenol 325mg tab] 650 mg PO Q6 PRN tab 05/11/17 Bacitracin OINT 1 applic TOP DAILY tube 05/11/17 Docusate [Colace] 100 mg PO DAILY cap 01/02/18 Enoxaparin [Lovenox] 40 mg SC DAILY syr 05/11/17 Ferrous Sulfate [Feosol] 325 mg PO DAILY tab 05/11/17 Lisinopril [Zestril] 40 mg PO DAILY tab 05/11/17 buPROPion SR [Wellbutrin SR 150 MG] 150 mg PO DAILY tab 05/11/17 oxyCODONE/Acetaminophen [Percocet 5/325 mg Tab] 1 tab PO Q4 PRN #30 tab Saccharomyces Boulardi [Florastor] 250 mg PO BID #10 cap 05/19/17 Vancomycin [Vancomycin Inj] 1 gm IVPB Q24H vial 05/19/17 Review of Systems - Neurological Neurological: UNREMARKABLE - Psychiatric Psychiatric: Anxiety, Depression. absent: Auditory Hallucinations, Hallucinations, Homicidal Ideation, Suicidal Ideation, Visual Hallucinations, Tactile Hallucinations Mental Status Examination - Personal Presentation Personal Presentation: Looks stated age - Affect Affect: Broad - Motor Activity Motor Activity: Calm - Reliability in Providing Information Reliability in Providing Information: Good - Speech Speech: Organized - Mood Mood: Neutral - Formal Thought Process Formal Thought Process: No Impairment - Cognitive Functions Orientation: Person, Place, Situation, Time Sensorium: Alert Attention/Concentration: Attentive Estimate of Intelligence: Average Judgement: Intact, as evidence by: Insight regarding need for hospitalization Memory: Recent impaired, as evidence by: Inability to recall events of the day - Risk Risk: Diminished functioning - Limitations Limitations: Living alone DSM 5 DX - DSM 5 DSM 5 Diagnosis: Delerium, r/o serotonin syndrome Generalized Anxiety Disorder MDD - Recommended/Plan of Treatment Treatment Recommendations and Plan of Treatment: Discontinue all psych medications. Patient is being transferred to [facility] in [place]. Encourage compliance with meds and after care 32 min - Smoking Cessation Smoking Cessation Initiated: No
[2017-05-19 15:55] VITALS: BP 158/74; PULSE 76; TEMP 98.1; O2SAT 96
--- NOTE | 2017-05-19 16:45 | CP.PCM.PN ---
Subjective - Date & Time of Evaluation Date of Evaluation: 05/19/17 Time of Evaluation: 07:00 - Subjective Subjective: no fever or chills awake alert NAD Objective - Vital Signs/Intake and Output Vital Signs (last 24 hours): Temp Pulse Resp BP Pulse Ox 98.1 F 76 20 158/74 H 96 05/19/17 15:50 05/19/17 15:50 05/19/17 15:50 05/19/17 15:50 05/19/17 15:50 Intake and Output: 05/19/17 05/19/17 06:59 18:59 Intake Total 500 Output Total 300 Balance 200 - Medications Medications: Current Medications Acetaminophen (Tylenol 325mg Tab) 650 mg PO Q6 PRN PRN Reason: Pain, Mild (1-3) Aspirin (Aspirin Chewable) 81 mg PO DAILY [facility] Last Admin: 05/19/17 10:52 Dose: 81 mg Famotidine (Pepcid) 20 mg PO DAILY [facility] Last Admin: 05/19/17 10:52 Dose: 20 mg Heparin Sodium (Porcine) (Heparin) 5,000 units SC Q8 [facility] Last Admin: 05/19/17 14:01 Dose: 5,000 units Ciprofloxacin (Cipro 200mg/100ml D5w) 100 mls @ 67 mls/hr IVPB Q12H [facility] Last Admin: 05/19/17 05:50 Dose: 67 mls/hr Vancomycin HCl 1 gm/ Sodium (Chloride) 200 mls @ 166.7 mls/hr IVPB Q24H [facility] Last Admin: 05/19/17 13:57 Dose: 166.7 mls/hr Insulin Human Regular (Novolin R) 0 unit SC ACHS [facility] PRN Reason: Protocol Last Admin: 05/19/17 11:30 Dose: Not Given Lisinopril (Zestril) 40 mg PO DAILY [facility] Last Admin: 05/19/17 10:52 Dose: 40 mg Oxycodone/Acetaminophen (Percocet 5/325 Mg Tab) 1 tab PO Q6H PRN PRN Reason: Pain, moderate (4-7) Stop: 05/21/17 09:05 Last Admin: 05/19/17 11:03 Dose: 1 tab - Labs Labs: 05/19/17 07:02 05/19/17 07:02 PT 12.7 SECONDS (9.7-12.2) H 01/06/18 07:13 INR 1.1 05/15/17 07:13 APTT 59 SECONDS (21-34) H D 05/16/17 04:57 - Constitutional Appears: Non-toxic, Chronically Ill - Head Exam Head Exam: NORMOCEPHALIC - Eye Exam Eye Exam: PERRL - ENT Exam ENT Exam: Mucous Membranes Dry - Neck Exam Neck Exam: absent: Lymphadenopathy - Respiratory Exam Respiratory Exam: Decreased Breath Sounds - Cardiovascular Exam Cardiovascular Exam: REGULAR RHYTHM - GI/Abdominal Exam GI & Abdominal Exam: Distended - Rectal Exam Rectal Exam: Deferred - Exam Exam: NORMAL INSPECTION - Extremities Exam Extremities Exam: Pedal Edema. absent: Calf Tenderness, Tenderness - Back Exam Back Exam: absent: CVA tenderness (L), CVA tenderness (R) - Neurological Exam Neurological Exam: Alert, Awake, Oriented x3 Assessment and Plan (1) Altered mental status Status: Acute (2) Hyperthermia Status: Acute (3) NSTEMI (non-ST elevated myocardial infarction) Status: Acute (4) Closed fracture of left distal radius Status: Acute (5) Displaced fracture of left ulna styloid process, initial encounter for closed fracture Status: Acute (6) Fracture of distal fibula Status: Acute (7) Fracture of wrist Status: Acute (8) Leg swelling Status: Acute (9) Lumbar vertebral fracture Status: Acute (10) Small bowel obstruction Status: Acute (11) Ulcer of right heel Status: Acute (12) Depression Status: Chronic (13) Diabetes Status: Chronic (14) Hyperlipidemia Status: Chronic (15) Sacral decubitus ulcer, stage IV Status: Chronic - Assessment and Plan (Free Text) Assessment: cont wound care and iv antibiotics
--- NOTE | 2017-05-24 05:44 | CARD ---
APPROVED REPORT EKG Measurement Heart [id number] <Conclusion> Normal sinus rhythm Right bundle branch block Abnormal ECG
--- NOTE | 2017-05-24 06:42 | CARD ---
APPROVED REPORT EKG Measurement Heart [id number] <Conclusion> Wide QRS tachycardia Left bundle branch block Abnormal ECG
--- NOTE | 2017-05-28 07:48 | DS ---
CHIEF COMPLAINT: The patient has the chief complaint of high fever of 107, hypertension, and tachycardia. The patient was found to be in ventricular tachycardia. The patient received emergency treatment to lower her temperature and control the heart rate. Admitted to ICU, given IV antibiotics, supportive care, gradual improvement mental status. Wound care was done. Medications for the patient was adjusted. DIAGNOSES: Hyperpyrexia problem, neuroleptic syndrome and sepsis. Zita Barksdale MD
== END 2017-05-19 16:40 | DRG 871 ==
LOC: C.ER 06:41 → C.9I 09:45 → C.9E 09:45 → C.5S 05-18 08:46
PROVIDERS: ADMIT Internal Medicine Pulmonary Disease; ATTEND Internal Medicine Pulmonary Disease
PROC: 02HV33Z Insertion of Infusion Device into Superior Vena Cava, Percutaneous Approach (ICD-10-PCS; principal; 2017-05-17)
DX: A41.9 Sepsis, unspecified organism (principal); I21.4 Non-ST elevation (NSTEMI) myocardial infarction; I47.2 Ventricular tachycardia; L89.154 Pressure ulcer of sacral region, stage 4; G21.0 Malignant neuroleptic syndrome; L97.419 Non-pressure chronic ulcer of right heel and midfoot with unspecified severity; E11.621 Type 2 diabetes mellitus with foot ulcer; E87.5 Hyperkalemia; D64.9 Anemia, unspecified; E78.5 Hyperlipidemia, unspecified; F32.9 Major depressive disorder, single episode, unspecified; F41.1 Generalized anxiety disorder; I10 Essential (primary) hypertension; I25.10 Atherosclerotic heart disease of native coronary artery without angina pectoris; I45.10 Unspecified right bundle-branch block; J45.909 Unspecified asthma, uncomplicated; Z79.4 Long term (current) use of insulin; Z86.73 Personal history of transient ischemic attack (TIA), and cerebral infarction without residual deficits